=== PATIENT | female | born 1935 | race Caucasian/White ===

== ENCOUNTER 2017-04-07 10:58 | Day surgery (SDC) | payer MEDICARE, OTHER ==
[~2017-04-07 10:58] MED LIST: Midazolam 1 MG/ML 2 ML SDV ONE; Propofol 200 MG/20 ML SDV ONE; fentaNYL 100 MCG/2 ML SDV ONE
[2017-04-07] MEDS ORDERED: Lactated Ringers 1,000 ML IV SCH (11:00)
[2017-04-07] MEDS ORDERED: Sodium Chloride 0.9% 5 ML Syringe FLUSH PRN (11:00)
[2017-04-07] MEDS ORDERED: fentaNYL 100 MCG/2 ML SDV IV ONE (11:53)
[2017-04-07] MEDS ORDERED: Midazolam 1 MG/ML 2 ML SDV IV ONE (11:53)
[2017-04-07] MEDS ORDERED: Propofol 200 MG/20 ML SDV IV ONE (11:53)
[2017-04-07] MEDS ORDERED: EPINEPHrine 1:10,000 1 MG/10 ML Syringe ONE (12:12)
--- NOTE | 2017-04-07 12:30 | PCM.OPNOTE ---
- General Post-Op/Procedure Note Date of Surgery/Procedure: 04/07/17 Operative Procedure(s): Colonoscopy with polypectomy at the ileocecal junction Pre Op Diagnosis: Rectal bleeding screening colonoscopy Post-Op Diagnosis: Polypoid structure noted at the ileocecal junction. This was flat. Multiple biopsies were taken. Anesthesia Technique: MAC Primary Surgeon: Zeeshan Martin Complications: None Free Text/Narrative:: INFORMED CONSENT: Patient is here today for elective colonoscopy. All aspects of this procedure have been discussed with the patient. All possible complications also, including possibility of perforation, infection, pain, bleeding and unknown complications. In the event of perforation patient may need to have abdominal exploration, colon resection, colostomy and even was discussed. Anesthetic complications were handled by anesthesia department. The patient understands fully well. Patient did not have any further questions for me at the end of my interview. The patient wishes for me to proceed. PREOPERATIVE DIAGNOSIS/INDICATIONS: [rectal bleeding and screening] POSTOPERATIVE DIAGNOSIS: [polypoid structure identified at the ileocecal junction. This was flat. Biopsies were taken. Could not completely remove this polyp] INSTRUMENT USED: Olympus videocolonoscope. ASA CLASSIFICATION: [2] ANESTHESIA: Continuous EKG, oximetry and intermittent blood pressure and respiratory monitoring were performed throughout the procedure. IV Versed and Fentanyl were administered. PROCEDURE PERFORMED: Colonoscopy POSITIONS OF PATIENT: Left lateral. RECTUM: Normal. SIGMOID COLON: Normal. DESCENDING COLON: Normal. SPLENIC FLEXURE: Normal. TRANSVERSE COLON: Normal. HEPATIC FLEXURE: Normal. ASCENDING COLON: Normal. CECUM: Normal. ILEOCECAL VALVE: Near the ileocecal valve a flat polyp was identified. We tried to remove it as best as possible using combination of hot biopsy forceps, injection technique with one is to 10,000 epinephrine and a loop electrocautery. It was not possible to completely remove it due to the flat nature. May require further excision by GI and/or other additional attempts at complete removal.. BIOPSY: None. TOLERANCE: Excellent. COMPLICATIONS: None.
[2017-04-07 14:08] VITALS: BP 147/76
== END 2017-04-07 13:45 | disposition home or self-care (01) ==
LOC: KA.SDS 10:58
PROVIDERS: ATTEND Family Medicine
DX: Z12.11 Encounter for screening for malignant neoplasm of colon (principal); Z12.12 Encounter for screening for malignant neoplasm of rectum; D37.4 Neoplasm of uncertain behavior of colon; Z79.899 Other long term (current) drug therapy; I10 Essential (primary) hypertension; M54.5 Low back pain; E78.00 Pure hypercholesterolemia, unspecified; M81.0 Age-related osteoporosis without current pathological fracture
CPT/HCPCS: 45384; J0171; J2250; J2704; J3010; J7120; 00810; 88305

== ENCOUNTER 2018-07-28 14:30 | Observation (INO) | payer MEDICARE, OTHER ==
--- NOTE | 2018-07-28 14:53 | EDM.PDOC ---
ED HPI GENERAL MEDICAL PROBLEM - General Stated Complaint: Tachycardia onset during catarract surgery Time Seen by Provider: 07/28/18 14:42 Source of Information: Reports: Patient History Limitations: Reports: No Limitations - History of Present Illness INITIAL COMMENTS - FREE TEXT/NARRATIVE: Patient presents with report of SVT that started in OR shortly after induction of anesthesia for cataract surgery. She remained in SVT at rate from 140-180 for 20 minutes during the procedure. Anesthesia tried valsalva once without response and brought her to ER as soon as the surgery was over. Soon after that she converted to A Fib with RVR. A few minutes later she spontaneously converted to NSR (with LBBB) as we were preparing to administer IV rate control. Patient has felt completely fine through everything. She denies any chest, neck or arm pain; denies headache, lightheadedness, nausea, diaphoresis. - Related Data Allergies Allergy/AdvReac Type Severity Reaction Status Date / Time warfarin [From Coumadin] Allergy Other Verified 07/28/18 16:26 Home Meds: Home Meds Simvastatin 60 mg PO BEDTIME 10/01/14 [History] Aspirin [Halfprin] 81 mg PO DAILY 04/01/17 [History] Cholecalciferol (Vitamin D3) [Vitamin D3] 1 cap PO DAILY 04/07/17 [History] Latanoprost 1 drop EYEBOTH BEDTIME 04/07/17 [History] Biotin 5 mg PO DAILY 07/24/18 [History] Losartan [Cozaar] 25 mg PO DAILY 07/24/18 [History] Magnesium Oxide [Magnesium] 400 mg PO DAILY 07/24/18 [History] traMADol [Ultram] 50 mg PO Q4H PRN 07/24/18 [History] Past Medical History HEENT History: Reports: Cataract, Glaucoma, Impaired Vision Cardiovascular History: Reports: High Cholesterol, Hypertension Gastrointestinal History: Reports: Colon Polyp Genitourinary History: Reports: None SUPPORT ARCHITECT History: Reports: Musculoskeletal History: Reports: None Oncologic (Cancer) History: Reports: Colon - Infectious Disease History Infectious Disease History: Reports: Chicken Pox, Shingles - Past Surgical History HEENT Surgical History: Reports: Cataract Surgery, Oral Surgery Cardiovascular Surgical History: Reports: None GI Surgical History: Reports: Colonoscopy, Small Bowel Female Surgical History: Reports: Tubal Ligation Musculoskeletal Surgical History: Reports: Knee Replacement Oncologic Surgical History: Reports: Other (See Below) Other Oncologic Surgeries/Procedures: bowel resection 2017 Social & Family History - Family History Family Medical History: Noncontributory - Caffeine Use Caffeine Use: Reports: Coffee ED ROS GENERAL - Review of Systems Review Of Systems: ROS reveals no pertinent complaints other than HPI. ED EXAM, GENERAL - Physical Exam Exam: See Below Exam Limited By: No Limitations General Appearance: Alert, WD/WN, No Apparent Distress Eye Exam: Bilateral Eye: EOMI (right eye patch post-op), Normal Inspection Ears: Normal External Exam, Hearing Grossly Normal Nose: Normal Inspection, No Blood Throat/Mouth: Normal Inspection, Normal Lips, Normal Voice, No Airway Compromise Head: Atraumatic, Normocephalic Neck: Normal Inspection, Full Range of Motion Respiratory/Chest: No Respiratory Distress, Lungs Clear, Normal Breath Sounds, No Accessory Muscle Use Cardiovascular: Tachycardia (initially then spontaneously converted to RRR) GI/Abdominal: Normal Bowel Sounds, Soft, Non-Tender, No Organomegaly Extremities: Normal Inspection, Normal Range of Motion Neurological: Alert, Oriented, Normal Cognition, No Motor/Sensory Deficits Psychiatric: Normal Affect, Normal Mood Skin Exam: Warm, Dry, Intact, Normal Color, No Rash EKG INTERPRETATION EKG Date: 07/28/18 Course - Vital Signs Last Recorded V/S: Last Vital Signs Temp 98.2 F 07/28/18 16:10 Pulse 81 07/28/18 16:10 Resp 18 07/28/18 16:10 BP 146/82 H 07/28/18 16:10 Pulse Ox 92 L 07/28/18 16:10 - Orders/Labs/Meds Orders: Active Orders 24 hr Category Date Time Status Atropine [Atropine 0.1 MG/ML] Med 07/28/18 15:53 Active 0 mg IVPUSH ASDIRECTED PRN EPINEPHrine [EPINEPHrine 1:10,000] Med 07/28/18 15:53 Active 1 mg IVPUSH ASDIRECTED PRN Lidocaine 2% [Xylocaine 2%] Med 07/28/18 15:53 Active 0 mg IVPUSH ASDIRECTED PRN Nitroglycerin [Nitrostat] Med 07/28/18 15:53 Active 0.4 mg SL ASDIRECTED PRN Medication Orders Atropine Sulfate (Atropine 0.1 Mg/Ml) 0 mg IVPUSH ASDIRECTED PRN PRN Reason: Heart Epinephrine HCl (Epinephrine 1:10,000) 1 mg IVPUSH ASDIRECTED PRN PRN Reason: Heart Lidocaine HCl (Xylocaine 2%) 0 mg IVPUSH ASDIRECTED PRN PRN Reason: Heart Nitroglycerin (Nitrostat) 0.4 mg SL ASDIRECTED PRN PRN Reason: Heart Labs: Laboratory Tests 07/28/18 07/28/18 Range/Units 15:10 15:10 WBC 7.69 (5.00-10.00) 10^3/uL RBC 4.80 (3.80-5.50) 10^6/uL Hgb 14.2 (12.0-16.0) g/dL Hct 44.6 (37.0-47.0) % MCV 92.9 H D (82.0-92.0) fL MCH 29.6 (27.0-31.0) pg MCHC 31.8 L (32.0-36.0) g/dL RDW 14.1 (11.5-14.5) % Plt Count 244 (150-400) 10^3/uL MPV 9.5 (7.4-10.4) fL Immature Gran % (Auto) 0.1 (0.0-5.0) % Neut % (Auto) 65.1 (50.0-70.0) % Lymph % (Auto) 26.0 (20.0-40.0) % Taylor % (Auto) 6.5 (2.0-8.0) % Eos % (Auto) 2.0 (1.0-3.0) % Baso % (Auto) 0.3 (0.0-1.0) % Immature Gran # (Auto) 0.01 (0.00-0.50) 10^3/uL Neut # (Auto) 5.01 (2.50-7.00) 10^3/uL Lymph # (Auto) 2.00 (1.00-4.00) 10^3/uL Taylor # (Auto) 0.50 (0.10-0.80) 10^3/uL Eos # (Auto) 0.15 (0.10-0.30) 10^3/uL Baso # (Auto) 0.02 (0.00-0.10) 10^3/uL Sodium 142 (136-145) mmol/L Potassium 4.1 (3.3-5.3) mmol/L Chloride 106 (98-115) mmol/L Carbon Dioxide 26.9 (21.0-32.0) mmol/L Anion Gap 13.2 (5-15) mmol/L BUN 17 (6-25) mg/dL Creatinine 0.65 (0.51-1.17) mg/dL Est Cr Clr Drug Dosing TNP Estimated GFR (MDRD) > 60 mL/min Glucose 94 mg/dL Calcium 9.2 (8.7-10.3) mg/dL Troponin I 0.08 H* (0.00-0.070) ng/mL Meds: Medications Generic Name Dose Route Start Last Admin Trade Name Freq PRN Reason Stop Dose Admin Atropine Sulfate 0 mg 07/28/18 15:53 Atropine 0.1 Mg/Ml IVPUSH ASDIRECTED PRN Heart Epinephrine HCl 1 mg 07/28/18 15:53 Epinephrine 1:10,000 IVPUSH ASDIRECTED PRN Heart Lidocaine HCl 0 mg 07/28/18 15:53 Xylocaine 2% IVPUSH ASDIRECTED PRN Heart Nitroglycerin 0.4 mg 07/28/18 15:53 Nitrostat SL ASDIRECTED PRN Heart Discontinued Medications Generic Name Dose Route Start Last Admin Trade Name Freq PRN Reason Stop Dose Admin Aspirin 325 mg 07/28/18 15:25 07/28/18 15:55 Ecotrin PO 07/28/18 15:26 325 mg ONETIME ONE Administration - Re-Assessments/Exams Free Text/Narrative Re-Assessment/Exam: 07/28/18 15:31 Initial EKG showed A Fib with RVR that spontaneously converted to NSR with LBBB which was caught on second EKG. Patient has been completely asymptomatic through everything and is feeling well. I faxed both EKGs to [facility] since she was just there for pre-op clearance. Dr. Silva (?sp) reviewed the EKGs and assured me that the ST changes were not indicative of STEMI but just related to her LBBB. Discussed case with Dr. Vieira to consider observation which he agreed and accepted. Discussed all of this with the patient and she was stable at ER discharge. 07/28/18 16:39 Troponin is 0.08 which I feel is likely due to cardiac strain during the 30-40 minutes of A Fib with RVR. Informed Dr. Vieira as she is in observation now and if necessary a second can be checked per him. Departure - Departure Time of Disposition: 15:23 Disposition: Refer to Observation Condition: Good Clinical Impression: Atrial fibrillation with RVR, Postoperative care for cataract of right eye Referrals: Lorne Nova, SAL[facility] GRINDER [Primary Care Provider] - - My Orders Last 24 Hours: My Active Orders 07/28/18 15:53 Atropine [Atropine 0.1 MG/ML] 0 mg IVPUSH ASDIRECTED PRN EPINEPHrine [EPINEPHrine 1:10,000] 1 mg IVPUSH ASDIRECTED PRN Lidocaine 2% [Xylocaine 2%] 0 mg IVPUSH ASDIRECTED PRN Nitroglycerin [Nitrostat] 0.4 mg SL ASDIRECTED PRN - Assessment/Plan Last 24 Hours: My Active Orders 07/28/18 15:53 Atropine [Atropine 0.1 MG/ML] 0 mg IVPUSH ASDIRECTED PRN EPINEPHrine [EPINEPHrine 1:10,000] 1 mg IVPUSH ASDIRECTED PRN Lidocaine 2% [Xylocaine 2%] 0 mg IVPUSH ASDIRECTED PRN Nitroglycerin [Nitrostat] 0.4 mg SL ASDIRECTED PRN
[2018-07-28] MEDS ORDERED: Aspirin 325 MG Tab.EC PO ONE (15:25)
[2018-07-28 15:48] LABS: ANION GAP 13.2 mmol/L (5-15); CHLORIDE,CL 106 mmol/L (98-115); SODIUM,NA 142 mmol/L (136-145)
[2018-07-28] MEDS ORDERED: Nitroglycerin 0.4 MG Tab.SL SL PRN (15:53)
[2018-07-28] MEDS ORDERED: Atropine 0.1 MG/ML 10 ML Syringe IVPUSH PRN (15:53)
[2018-07-28] MEDS ORDERED: EPINEPHrine 1:10,000 1 MG/10 ML Syringe IVPUSH PRN (15:53)
[2018-07-28] MEDS ORDERED: Lidocaine 2% 100 MG/5 ML Syringe IVPUSH PRN (15:53)
[2018-07-28] MEDS ORDERED: traMADol 50 MG Tab PO PRN (16:45)
[2018-07-28] MEDS ORDERED: GATIFLOXACIN EYERT SCH (17:00)
[2018-07-28] MEDS ORDERED: Non-Formulary Medication 1 Each (Prednisolone Acetate/Pf [Prednisolone Acet 1% Eye Drop] 1 EYERT SCH (17:00)
[2018-07-28] MEDS ORDERED: Enoxaparin 40 MG/0.4 ML Syringe SUBCUT ONE ×2 (19:45→19:53)
[2018-07-28] MEDS: Simvastatin 20 MG Tab PO SCH (20:11)
[2018-07-28] MEDS: Latanoprost 0.005% Ophth Soln 2.5 ML Bottle EYEBOTH SCH (20:14)
--- NOTE | 2018-07-29 08:50 | PCM.HP ---
H&P History of Present Illness - General Date of Service: 07/29/18 Admit Problem/Dx: Admission Diagnosis/Problem Admission Diagnosis/Problem Atrial fibrillation with rapid ventricular response Source of Information: Patient, Old Records - History of Present Illness Initial Comments - Free Text/Narative: 82 y/o female was admitted into observation yesterday due to atrial fibrillation with RVR. This today patient was undergoing cataract surgery and shortly after induction of anesthesia she went into SVT heart rate 140s to 180s for approximately 20 minutes duration. Although patient was asymptomatic Patient was completely asymptomatic a trial of Valsalva maneuvers was unsuccessful. She was subsequently transferred to the ED shortly thereafter she went into atrial fibrillation with RVR few minutes later spontaneously converted into normal sinus rhythm. Patient never had symptoms such as chest pains lightheadedness diaphoresis. She was admitted into observation with telemetry status. - Related Data Allergies/Adverse Reactions: Allergies Allergy/AdvReac Type Severity Reaction Status Date / Time warfarin [From Coumadin] Allergy Other Verified 07/28/18 16:26 Home Medications: Home Meds Simvastatin 60 mg PO BEDTIME 10/01/14 [History] Cholecalciferol (Vitamin D3) [Vitamin D3] 2,000 unit PO DAILY 04/07/17 [History] Latanoprost 1 drop EYEBOTH BEDTIME 04/07/17 [History] Biotin 5 mg PO DAILY 07/24/18 [History] Losartan [Cozaar] 25 mg PO DAILY 07/24/18 [History] Magnesium Oxide [Magnesium] 400 mg PO DAILY 07/24/18 [History] traMADol [Ultram] 50 mg PO Q4H PRN 07/24/18 [History] Gatifloxacin [Zymaxid 0.5% Ophth Soln] 1 drop EYERT QID 07/28/18 [History] Prednisolone Acetate/Pf [Prednisolone Acet 1% Eye Drop] 1 drop EYERT QID [History] Apixaban [Eliquis] 2.5 mg PO BID #60 tablet 07/30/18 [Rx] Metoprolol Tartrate [Lopressor] 50 mg PO BID #60 tablet 07/30/18 [Rx] Past Medical History HEENT History: Reports: Cataract, Glaucoma, Impaired Vision Other HEENT History: right cataract surgery today Cardiovascular History: Reports: High Cholesterol, Hypertension Other Cardiovascular History: Afib with RVR that converted back to a normal sinus without receiving medications Gastrointestinal History: Reports: Colon Polyp Genitourinary History: Reports: None 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: Musculoskeletal History: Reports: None Oncologic (Cancer) History: Reports: Colon - Infectious Disease History Infectious Disease History: Reports: Chicken Pox, Shingles - Past Surgical History HEENT Surgical History: Reports: Cataract Surgery, Oral Surgery Cardiovascular Surgical History: Reports: None GI Surgical History: Reports: Colonoscopy, Small Bowel Female Surgical History: Reports: Tubal Ligation Musculoskeletal Surgical History: Reports: Knee Replacement Oncologic Surgical History: Reports: Other (See Below) Other Oncologic Surgeries/Procedures: bowel resection 2016 Social & Family History - Family History Family Medical History: Noncontributory Cardiac: Reports: None Respiratory: Reports: None GI: Reports: None : Reports: None OBGYN: Reports: None Musculoskeletal: Reports: None Neurological: Reports: None Psychiatric: Reports: None - Tobacco Use Smoking Status *Q: Former Smoker Used Tobacco, but Quit: Yes Month/Year Tobacco Last Used: 1999 - Caffeine Use Caffeine Use: Reports: Coffee - Recreational Drug Use Recreational Drug Use: No H&P Review of Systems - Review of Systems: Review Of Systems: See Below General: Reports: No Symptoms HEENT: Reports: No Symptoms Pulmonary: Reports: No Symptoms Cardiovascular: Reports: No Symptoms Gastrointestinal: Reports: No Symptoms Genitourinary: Reports: No Symptoms Musculoskeletal: Reports: Back Pain Skin: Reports: No Symptoms Psychiatric: Reports: No Symptoms Neurological: Reports: No Symptoms Hematologic/Lymphatic: Reports: No Symptoms Immunologic: Reports: No Symptoms Exam - Exam Exam: See Below - Vital Signs Vital Signs: Last Vital Signs Temp 98.5 F 07/29/18 06:55 Pulse 70 07/29/18 06:55 Resp 20 07/29/18 06:55 BP 144/80 H 07/29/18 06:55 Pulse Ox 94 L 07/29/18 06:55 Weight: 112 lb 11.2 oz - Exam General: Alert, Oriented, 4 Neck: Supple, Trachea Midline, 2 Lungs: Clear to Auscultation, Normal Respiratory Effort Cardiovascular: Regular Rate, Regular Rhythm GI/Abdominal Exam: Normal Bowel Sounds, Soft, Non-Tender, No Distention (Female) Exam: Deferred Rectal (Female) Exam: Deferred Back Exam: No: CVA Tenderness (L), CVA Tenderness (R) Extremities: No Pedal Edema Skin: Warm, Dry, Intact Neurological: Cranial Nerves Intact, Reflexes Equal Bilateral Neuro Extensive - Mental Status: Alert, Oriented x3, Normal Mood/Affect, Normal Cognition Neuro Extensive - Motor, Sensory, Reflexes: CN II-XII Intact, Normal Gait, Normal Reflexes Psychiatric: Alert, Normal Affect, Normal Mood - Patient Data Lab Results Last 24 hrs: Laboratory Results - last 24 hr 07/28/18 07/28/18 07/28/18 Range/Units 15:10 15:10 18:50 WBC 7.69 (5.00-10.00) 10^3/uL RBC 4.80 (3.80-5.50) 10^6/uL Hgb 14.2 (12.0-16.0) g/dL Hct 44.6 (37.0-47.0) % MCV 92.9 H D (82.0-92.0) fL MCH 29.6 (27.0-31.0) pg MCHC 31.8 L (32.0-36.0) g/dL RDW 14.1 (11.5-14.5) % Plt Count 244 (150-400) 10^3/uL MPV 9.5 (7.4-10.4) fL Immature Gran % (Auto) 0.1 (0.0-5.0) % Neut % (Auto) 65.1 (50.0-70.0) % Lymph % (Auto) 26.0 (20.0-40.0) % [place] % (Auto) 6.5 (2.0-8.0) % Eos % (Auto) 2.0 (1.0-3.0) % Baso % (Auto) 0.3 (0.0-1.0) % Immature Gran # (Auto) 0.01 (0.00-0.50) 10^3/uL Neut # (Auto) 5.01 (2.50-7.00) 10^3/uL Lymph # (Auto) 2.00 (1.00-4.00) 10^3/uL [place] # (Auto) 0.50 (0.10-0.80) 10^3/uL Eos # (Auto) 0.15 (0.10-0.30) 10^3/uL Baso # (Auto) 0.02 (0.00-0.10) 10^3/uL Sodium 142 (136-145) mmol/L Potassium 4.1 (3.3-5.3) mmol/L Chloride 106 (98-115) mmol/L Carbon Dioxide 26.9 (21.0-32.0) mmol/L Anion Gap 13.2 (5-15) mmol/L BUN 17 (6-25) mg/dL Creatinine 0.65 (0.51-1.17) mg/dL Est Cr Clr Drug Dosing TNP Estimated GFR (MDRD) > 60 mL/min Glucose 94 mg/dL Calcium 9.2 (8.7-10.3) mg/dL Troponin I 0.08 H* 0.11 H* (0.00-0.070) ng/mL 07/29/18 Range/Units 07:05 WBC (5.00-10.00) 10^3/uL RBC (3.80-5.50) 10^6/uL Hgb (12.0-16.0) g/dL Hct (37.0-47.0) % MCV (82.0-92.0) fL MCH (27.0-31.0) pg MCHC (32.0-36.0) g/dL RDW (11.5-14.5) % Plt Count (150-400) 10^3/uL MPV (7.4-10.4) fL Immature Gran % (Auto) (0.0-5.0) % Neut % (Auto) (50.0-70.0) % Lymph % (Auto) (20.0-40.0) % [place] % (Auto) (2.0-8.0) % Eos % (Auto) (1.0-3.0) % Baso % (Auto) (0.0-1.0) % Immature Gran # (Auto) (0.00-0.50) 10^3/uL Neut # (Auto) (2.50-7.00) 10^3/uL Lymph # (Auto) (1.00-4.00) 10^3/uL [place] # (Auto) (0.10-0.80) 10^3/uL Eos # (Auto) (0.10-0.30) 10^3/uL Baso # (Auto) (0.00-0.10) 10^3/uL Sodium (136-145) mmol/L Potassium (3.3-5.3) mmol/L Chloride (98-115) mmol/L Carbon Dioxide (21.0-32.0) mmol/L Anion Gap (5-15) mmol/L BUN (6-25) mg/dL Creatinine (0.51-1.17) mg/dL Est Cr Clr Drug Dosing Estimated GFR (MDRD) mL/min Glucose mg/dL Calcium (8.7-10.3) mg/dL Troponin I 0.12 H* (0.00-0.070) ng/mL Result Diagrams: 07/28/18 15:10 07/28/18 15:10 *Q Meaningful Use (ADM) - VTE Risk Assess *Q Other Thrombophilia Type: Cataract surgery today Problem List Initiated/Reviewed/Updated: Yes Orders Last 24hrs: Active Orders 24 hr Category Date Time Status Patient Status [ADT] Routine ADT 07/28/18 16:00 Ordered Cardiac Monitoring [RC] 0300,0700,1100,1500,1900,2300 Care 07/28/18 17:01 Active Up With Assistance [RC] ASDIRECTED Care 07/28/18 16:58 Active Vital Signs [RC] 0300,0700,1100,1500,1900,2300 Care 07/28/18 16:58 Active Heart Healthy Diet [DIET] Diet 07/28/18 Dinner Active Aspirin [Halfprin] Med 07/29/18 09:00 Active 81 mg PO DAILY Atropine [Atropine 0.1 MG/ML] Med 07/28/18 15:53 Active 0 mg IVPUSH ASDIRECTED PRN Biotin [Biotin] Med 07/29/18 09:00 Pending 5 mg PO DAILY Cholecalciferol (Vitamin D3) [Vitamin D3] Med 07/29/18 09:00 Active 1,000 units PO DAILY EPINEPHrine [EPINEPHrine 1:10,000] Med 07/28/18 15:53 Active 1 mg IVPUSH ASDIRECTED PRN Latanoprost [Xalatan 0.005% Ophth Soln] Med 07/28/18 21:00 Active 0 ml EYEBOTH BEDTIME Lidocaine 2% [Xylocaine 2%] Med 07/28/18 15:53 Active 0 mg IVPUSH ASDIRECTED PRN Losartan [Cozaar] Med 07/29/18 09:00 Active 25 mg PO DAILY Magnesium Oxide Med 07/29/18 09:00 Active 500 mg PO DAILY Nitroglycerin [Nitrostat] Med 07/28/18 15:53 Active 0.4 mg SL ASDIRECTED PRN Patient's Own Medication [Ptom] Med 07/29/18 09:00 Active 1 each EYERT QID Patient's Own Medication [Ptom] Med 07/29/18 09:00 Active 1 each EYERT QID Simvastatin [Zocor] Med 07/28/18 21:00 Active 60 mg PO BEDTIME traMADol [Ultram] Med 07/28/18 16:45 Active 50 mg PO Q4H PRN Resuscitation Status Routine Resus Stat 07/28/18 16:58 Ordered Medication Orders Aspirin (Halfprin) 81 mg PO DAILY [facility] Atropine Sulfate (Atropine 0.1 Mg/Ml) 0 mg IVPUSH ASDIRECTED PRN PRN Reason: Heart Cholecalciferol (Vitamin D3) 1,000 units PO DAILY [facility] Epinephrine HCl (Epinephrine 1:10,000) 1 mg IVPUSH ASDIRECTED PRN PRN Reason: Heart Latanoprost (Xalatan 0.005% Ophth Soln) 0 ml EYEBOTH BEDTIME [facility] Last Admin: 07/28/18 20:14 Dose: Not Given Lidocaine HCl (Xylocaine 2%) 0 mg IVPUSH ASDIRECTED PRN PRN Reason: Heart Losartan Potassium (Cozaar) 25 mg PO DAILY [facility] Magnesium Oxide (Magnesium Oxide) 500 mg PO DAILY [facility] Nitroglycerin (Nitrostat) 0.4 mg SL ASDIRECTED PRN PRN Reason: Heart Non-Formulary Medication (Biotin [Biotin]) 5 mg PO DAILY [facility] Ptom Prednisolone 1% Ophth Susp 1 each EYERT QID ROBB Ptom Gatifloxacin 0.5% Ophth Soln 1 each EYERT QID [facility] Simvastatin (Zocor) 60 mg PO BEDTIME [facility] Last Admin: 07/28/18 20:11 Dose: 60 mg Tramadol HCl (Ultram) 50 mg PO Q4H PRN PRN Reason: Pain Last Admin: 07/29/18 06:30 Dose: 50 mg Assessment/Plan Comment:: History of present illness 82 y/o female was admitted into observation yesterday due to atrial fibrillation with RVR. This today patient was undergoing cataract surgery and shortly after induction of anesthesia she went into SVT heart rate 140s to 180s for approximately 20 minutes duration. Although patient was asymptomatic Patient was completely asymptomatic a trial of Valsalva maneuvers was unsuccessful. She was subsequently transferred to the ED shortly thereafter she went into atrial fibrillation with RVR few minutes later spontaneously converted into normal sinus rhythm. Patient never had symptoms such as chest pains lightheadedness diaphoresis. She was admitted into observation with telemetry status. Pertinent ED workup/findings EKG, witnessed atrial fibrillation RVR rate 155 Initial troponin 0.08 BP 137/91 Primary hospital problems Paroxysmal Afib, [id number] high 7, NSR, unknown burden, ECHO 06/09, EF 45% global hypokinesis LV, grade 2 LV diastolic dysfunction, mild LV thickness ND, likely type 2 hemodynamic, NORY risk 4-immediate ASA was held 5 days pre- cataract surgery. Aggressive medical therapy for now, New LBBB, limitted flow disease pretest probability for CAD, [place] heart score unreliable as she has no anginal or equivalent symptoms. Warfarin is listed as unknown allergy on chart, obtain records from [facility]. Likely will need to start some sort anticoagulation hopefully DOAC, in the meantime start BB. Will consult with cardiology for outpatient referral and likely Zio Patch to assess atrial fib burden. Long discussion regarding anticoagulation factor Xa inhibitor and all the risks versus benefits explained to the patient including risks of serious bleeding. Patient consents to start on Eliquis. Chronic problems LV Diastolic dysfuntion HTN, stable, ARB HLD, ASCVD, statin Hx cerebral infarction Osteoporosis, vitamin D, calcium, Anxiety, stable, possibly mimicking chest palpitations Status post cataract surgery, stable, follow-up appointment [address] Jack
[2018-07-29] MEDS: PREDNISOLONE 1% EYERT SCH ×4 (08:59→20:14)
[2018-07-29] MEDS: Magnesium Oxide 500 MG Tab PO SCH (08:59)
[2018-07-29] MEDS: Aspirin 81 MG Tab.EC PO SCH (08:59)
[2018-07-29] MEDS: Cholecalciferol (Vitamin D3) 1,000 Unit Tab PO SCH (08:59)
[2018-07-29] MEDS: Losartan 25 MG Tab PO SCH (08:59)
[2018-07-29] MEDS ORDERED: Non-Formulary Medication 1 Each (Biotin [Biotin] 5 MG) PO SCH (09:00)
[2018-07-29] MEDS: GATIFLOXACIN 0.5% EYERT SCH ×4 (09:23→20:19)
[2018-07-29] MEDS: Metoprolol Tartrate 50 MG Tab PO SCH ×2 (10:50→20:18)
[2018-07-29] MEDS ORDERED: Sodium Chloride 0.9% 5 ML Syringe FLUSH PRN (20:00)
[2018-07-29] MEDS: Simvastatin 20 MG Tab PO SCH (20:18)
[2018-07-29] MEDS: Latanoprost 0.005% Ophth Soln 2.5 ML Bottle EYEBOTH SCH (20:19)
[2018-07-30 06:48] VITALS: BP 143/82
[2018-07-30] MEDS: Aspirin 81 MG Tab.EC PO SCH (08:36)
[2018-07-30] MEDS: Losartan 25 MG Tab PO SCH (08:36)
[2018-07-30] MEDS: Metoprolol Tartrate 50 MG Tab PO SCH (08:36)
[2018-07-30] MEDS: Cholecalciferol (Vitamin D3) 1,000 Unit Tab PO SCH (08:37)
[2018-07-30] MEDS: Magnesium Oxide 500 MG Tab PO SCH (08:37)
[2018-07-30] MEDS: GATIFLOXACIN 0.5% EYERT SCH (08:40)
[2018-07-30] MEDS: PREDNISOLONE 1% EYERT SCH (08:41)
[2018-07-30] MEDS ORDERED: Apixaban 5 MG Tab PO SCH (09:45)
== END 2018-07-30 12:15 | disposition home or self-care (01) ==
LOC: KA.ED 14:30 → KA.MS 15:26 → UNDODISOB 07-30 12:15
PROVIDERS: ADMIT Physician Assistant Surgical; ATTEND Family Medicine
DX: I48.0 Paroxysmal atrial fibrillation (principal); I11.9 Hypertensive heart disease without heart failure; I44.7 Left bundle-branch block, unspecified; I25.2 Old myocardial infarction; F41.9 Anxiety disorder, unspecified; E78.5 Hyperlipidemia, unspecified; Z87.891 Personal history of nicotine dependence; Z79.01 Long term (current) use of anticoagulants; Z79.899 Other long term (current) drug therapy; Z88.8 Allergy status to other drugs, medicaments and biological substances
CPT/HCPCS: 36415; 80048; 84484; 85025; 96372; 99284; 99285; A9270-GY; G0378; J1650

== ENCOUNTER 2019-01-26 07:35 | Day surgery (SDC) | payer MEDICARE, OTHER ==
[2019-01-26] MEDS ORDERED: fentaNYL 100 MCG/2 ML SDV IV ONE (07:36)
[2019-01-26] MEDS ORDERED: Midazolam 1 MG/ML 2 ML SDV IV ONE (07:36)
[2019-01-26] MEDS ORDERED: Gatifloxacin 0.5% Ophth Soln 2.5 ML Bot EYELF SCH (07:40)
[2019-01-26] MEDS ORDERED: Sodium Chloride 0.9% 10 ML Syringe FLUSH PRN (07:40)
[2019-01-26] MEDS ORDERED: Lactated Ringers 1,000 ML IV SCH (07:40)
[2019-01-26] MEDS ORDERED: Tobramycin 0.3% Ophth Drops 5 ML Bottle EYELF ONE (07:51)
[2019-01-26] MEDS: Cyclopentolate 1% Opth Soln 2 ML Bottle EYELF SCH ×3 (08:04→08:29)
[2019-01-26] MEDS ORDERED: fentaNYL 100 MCG/2 ML SDV ONE (08:04)
[2019-01-26] MEDS ORDERED: Midazolam 1 MG/ML 2 ML SDV ONE (08:04)
[2019-01-26] MEDS: Phenylephrine 10% Ophth Soln 5 ML Bot EYELF SCH ×3 (08:09→08:35)
[2019-01-26] MEDS ORDERED: Sodium Chloride 0.9% 250 ML IV SCH (08:30)
[2019-01-26] MEDS ORDERED: Balanced Salt Solution Plus Ophth Irrig 500 ML Bottle IOCULAR ONE (09:31)
[2019-01-26] MEDS ORDERED: Balanced Salt Solution Ophth Irrig 15 ML Bottle EYELF ONE (09:31)
[2019-01-26] MEDS ORDERED: Water For Irrigation,Sterile 1,500 ML Container IRR ONE (09:31)
[2019-01-26] MEDS ORDERED: EPINEPHrine 1 MG/ML SDV ONE (09:32)
[2019-01-26] MEDS ORDERED: Carbachol 0.01% Intraocular 1.5 ML Vial EYELF ONE (09:32)
[2019-01-26] MEDS ORDERED: Dexamethasone/Neomycin/Polymyxin B Ophth Oint 3.5 GM Tube EYELF ONE (09:33)
[2019-01-26] MEDS ORDERED: Tetracaine HCl/PF 0.5% 4 ML Bottle EYEBOTH ONE (09:34)
[2019-01-26] MEDS ORDERED: Lidocaine 1% 10 ML MDV INJECT ONE (09:34)
[2019-01-26] MEDS ORDERED: Hyaluronate Sodium 1% 0.85 ML Syringe IOCULAR ONE ×2 (09:34)
[2019-01-26 10:07] VITALS: BP 139/63
--- NOTE | 2019-01-26 12:48 | OR ---
DATE OF SURGERY: 01/26/2019 SURGEON: Peña Long MD PREOPERATIVE DIAGNOSIS: Cataract, left eye. POSTOPERATIVE DIAGNOSIS: Cataract, left eye. OPERATION: Phacoemulsification with posterior chamber lens insertion, left eye. HISTORY: The patient presents at this time with an increasing amount of difficulty seeing print on TV and difficulty seeing to read; also oncoming lights bother her. The left eye has a vision of 20/60. The left lens has a 3+ nuclear sclerosis, 1+ cortical change, and one to 2+ posterior subcapsular change. This eye has a combined cataract and a cataract of aging. OPERATIVE PROCEDURE: The patient was taken to the operating room where appropriate anesthesia, sedation and monitoring were provided. The eye and the eyelids were then prepped and draped in the usual sterile manner. A lid speculum was placed. A micro sharp blade was used to enter the anterior chamber inferotemporally and through this site, xylocaine and then Healon were irrigated in the eye. Then using a 2.85 mm blade, an incision was made at the limbus temporally. Healon was irrigated in the eye and then using a cystotome, the anterior capsulorrhexis was created. The lens nucleus was hydrodissected using a 27-gauge cannula and balanced salt solution. The phacoemulsification unit was introduced through the temporal site and the Bhupendra spatula through the inferior temporal site. In so doing, the anterior aspect of the lens nucleus was phacoemulsified and the central core of the lens nucleus was phacoemulsified. Once this was being done, it was noted that the pupil was becoming smaller and therefore Healon was irrigated into the eye and a Malyugin ring of 6.25 mm was placed. Thereafter, the phacoemulsification was accomplished without difficulty. The cortical fragments of the lens were removed using the irrigation aspiration unit. The posterior capsule was polished. Healon was irrigated into the eye. The posterior chamber lens was inserted and was rotated into position inside the capsular bag. Malyugin ring was removed. The Healon was irrigated out of the eye. Miostat was irrigated into the eye and the pupil rounded nicely. A single interrupted 10-0 nylon suture was placed through the temporal corneal incision site. Balanced salt solution was irrigated into the eye. The wound was tested and was found to be appropriately tight. Maxitrol ointment was placed in the patient's eye. The eyelids were closed and an eye patch and a Santos shield were placed. The patient left the operating room in good condition. /[id number]/MODL
== END 2019-01-26 10:24 | disposition home or self-care (01) ==
LOC: KA.SDS 07:35
PROVIDERS: ATTEND Ophthalmology
DX: H25.812 Combined forms of age-related cataract, left eye (principal); Z96.1 Presence of intraocular lens; I10 Essential (primary) hypertension; I48.0 Paroxysmal atrial fibrillation; I48.91 Unspecified atrial fibrillation; E78.5 Hyperlipidemia, unspecified; R60.0 Localized edema; Z79.01 Long term (current) use of anticoagulants; Z88.8 Allergy status to other drugs, medicaments and biological substances
CPT/HCPCS: 00142; 36410; A9270-GY; C1780; J0171; J2001; J2250; J3010; J7050

== ENCOUNTER 2019-02-02 18:40 | Inpatient (IN) | payer MEDICARE, OTHER ==
[2019-02-02] MEDS ORDERED: Ondansetron 4 MG/2 ML SDV IV PRN (19:57)
[2019-02-02] MEDS ORDERED: Melatonin 3 MG Tab PO PRN (20:11)
--- NOTE | 2019-02-02 20:15 | PCM.HP ---
H&P History of Present Illness - General Date of Service: 02/02/19 Admit Problem/Dx: Admission Diagnosis/Problem Admission Diagnosis/Problem Diverticulitis Source of Information: Patient History Limitations: Reports: No Limitations Right Lower Abdomen Pain Score (Numeric/FACES): 3 - Related Data Allergies/Adverse Reactions: Allergies Allergy/AdvReac Type Severity Reaction Status Date / Time warfarin [From Coumadin] Allergy Other Verified 02/02/19 18:59 Home Medications: Home Meds Cholecalciferol (Vitamin D3) [Vitamin D3] 2,000 unit PO DAILY 04/07/17 [History] Latanoprost 1 drop EYEBOTH BEDTIME 04/07/17 [History] Biotin 5 mg PO DAILY 07/24/18 [History] Magnesium Oxide [Magnesium] 400 mg PO DAILY PRN 07/24/18 [History] traMADol [Ultram] 50 mg PO Q8HR PRN 07/24/18 [History] Prednisolone Acetate/Pf [Prednisolone Acet 1% Eye Drop] 1 drop EYELF QID [History] Apixaban [Eliquis] 2.5 mg PO BID #60 tablet 07/30/18 [Rx] Furosemide [Lasix] 40 mg PO DAILY 01/25/19 [History] Losartan [Cozaar] 25 mg PO DAILY 01/25/19 [History] Metoprolol Succinate [Toprol XL] 25 mg PO DAILY 01/25/19 [History] Simvastatin [Zocor] 60 mg PO DAILY 01/25/19 [History] Furosemide [Lasix] 40 mg PO DAILY PRN 02/02/19 [History] Past Medical History HEENT History: Reports: Cataract, Glaucoma, Impaired Vision Other HEENT History: right cataract surgery last week. Cardiovascular History: Reports: Arrhythmia, High Cholesterol, Hypertension Other Cardiovascular History: Afib with RVR that converted back to a normal sinus without receiving medications post-op cataract Respiratory History: Reports: Other (See Below) Other Respiratory History: Flash Pulmonary edema Gastrointestinal History: Reports: Colon Polyp Genitourinary History: Reports: None TAPPER HAND History: Reports: Musculoskeletal History: Reports: Back Pain, Chronic Other Musculoskeletal History: Back pain "comes and goes." Pt states she uses ultram as needed for this pain. 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 Psychiatric History: Reports: None Hematologic History: Reports: None Immunologic History: Reports: None Oncologic (Cancer) History: Reports: Colon Dermatologic History: Reports: None - Infectious Disease History Infectious Disease History: Reports: Chicken Pox, Measles, Mumps - Past Surgical History Head Surgeries/Procedures: Reports: None HEENT Surgical History: Reports: Cataract Surgery, Oral Surgery Cardiovascular Surgical History: Reports: None GI Surgical History: Reports: Colonoscopy, Small Bowel Female Surgical History: Reports: Tubal Ligation Musculoskeletal Surgical History: Reports: Knee Replacement Oncologic Surgical History: Reports: Other (See Below) Other Oncologic Surgeries/Procedures: bowel resection 2016 Social & Family History - Family History Family Medical History: Noncontributory Cardiac: Reports: None Respiratory: Reports: None GI: Reports: None : Reports: None OBGYN: Reports: None Musculoskeletal: Reports: None Neurological: Reports: None Psychiatric: Reports: None Endocrine/Metabolic: Reports: None Hematologic: Reports: None Immunologic: Reports: None Oncologic: Reports: None - Tobacco Use Smoking Status *Q: Former Smoker Years of Tobacco use: 40 Packs/Tins Daily: 1 Used Tobacco, but Quit: Yes Month/Year Tobacco Last Used: 1997 Second Hand Smoke Exposure: No - Caffeine Use Caffeine Use: Reports: None - Recreational Drug Use Recreational Drug Use: No H&P Review of Systems - Review of Systems: Review Of Systems: See Below General: Denies: No Symptoms, Fever, Chills, Malaise, Weakness, Fatigue, Night Sweats, Diaphoresis, Decreased Appetite, Weight Loss HEENT: Reports: No Symptoms Pulmonary: Reports: No Symptoms Cardiovascular: Reports: Dyspnea on Exertion. Denies: Blood Pressure Problem Gastrointestinal: Reports: Abdominal Pain. Denies: Constipation, Decreased Appetite, Difficulty Swallowing, Distension, Nausea, Vomiting Genitourinary: Reports: No Symptoms Musculoskeletal: Reports: No Symptoms Skin: Reports: No Symptoms Psychiatric: Reports: No Symptoms Neurological: Reports: No Symptoms Hematologic/Lymphatic: Reports: Easy Bleeding Immunologic: Reports: No Symptoms Exam - Exam Exam: See Below - Vital Signs Vital Signs: Last Vital Signs Temp 98.7 F 02/02/19 18:49 Pulse 79 02/02/19 18:49 Resp 22 H 02/02/19 18:49 BP 138/76 02/02/19 18:49 Pulse Ox 93 L 02/02/19 18:49 Weight: 110 lb 1.6 oz - Exam Quality Assessment: No: Supplemental Oxygen General: Alert, Oriented, Cooperative. No: Mild Distress HEENT: Conjunctiva Clear, Mucosa Moist & [place] Neck: Supple Lungs: Clear to Auscultation, Normal Respiratory Effort. No: Rhonchi Cardiovascular: Regular Rate, Regular Rhythm, Normal S1, Normal S2 GI/Abdominal Exam: Soft, No Distention, Tender (tender to RLQ) (Female) Exam: Deferred Rectal (Female) Exam: Deferred Back Exam: No: CVA Tenderness (L), CVA Tenderness (R) Extremities: No Pedal Edema Peripheral Pulses: 2+: Radial (L), Radial (R) Skin: Warm, Dry, Intact Neurological: Cranial Nerves Intact, Reflexes Equal Bilateral Neuro Extensive - Mental Status: Alert, Oriented x3, Normal Mood/Affect, Normal Cognition Neuro Extensive - Motor, Sensory, Reflexes: CN II-XII Intact, Normal Gait, Normal Reflexes Psychiatric: Alert, Normal Affect, Normal Mood. No: Agitated - Patient Data Result Diagrams: 02/03/19 07:15 Problem List Initiated/Reviewed/Updated: Yes Orders Last 24hrs: Active Orders 24 hr Category Date Time Status Admission Status [Patient Status] [ADT] Routine ADT 02/02/19 18:40 Ordered May Shower [RC] ASDIRECTED Care 02/02/19 19:57 Active Notify Provider Vital Signs [RC] ASDIRECTED Care 02/02/19 19:57 Active Oxygen Therapy [RC] PRN Care 02/02/19 19:57 Active Up to Chair [RC] ASDIRECTED Care 02/02/19 19:57 Active VTE/DVT Education [RC] PER UNIT ROUTINE Care 02/02/19 19:57 Active Vital Signs [RC] Q4H Care 02/02/19 19:57 Active Low Residue [Low Fiber Diet] [DIET] Diet 02/03/19 Breakfast Active CBC WITH AUTO DIFF [HEME] AM Lab 02/03/19 05:11 Ordered Apixaban [Eliquis] Med 02/02/19 21:00 Ordered 2.5 mg PO BID Furosemide [Lasix] Med 02/03/19 09:00 Ordered 40 mg PO DAILY Latanoprost [Xalatan 0.005% Ophth Soln] Med 02/02/19 21:00 Ordered DOSE ml EYEBOTH BEDTIME Losartan [Cozaar] Med 02/03/19 09:00 Ordered 25 mg PO DAILY Melatonin Med 02/02/19 20:11 Ordered 3 mg PO BEDTIME PRN Metoprolol Succinate [Toprol XL] Med 02/03/19 09:00 Ordered 25 mg PO DAILY Ondansetron [Zofran] Med 02/02/19 19:57 Ordered 4 mg IV Q4H PRN Prednisolone Acetate/Pf [Prednisolone Acet 1% Eye Drop] Med 02/02/19 21:00 Ordered 1 drop EYELF QID Sodium Chloride 0.9% [Saline Flush] Med 02/02/19 19:57 Ordered 10 ml FLUSH Q8HR PRN cefTRIAXone [Rocephin] Med 02/02/19 20:15 Ordered 1 gm IVPUSH Q12H metroNIDAZOLE/Normal Saline [Flagyl 500 MG in NS 100 ML Med 02/02/19 22:00 Ordered ] 500 mg Premix Bag 1 bag IV Q8H traMADol [Ultram] Med 02/02/19 20:08 Ordered 50 mg PO Q8HR PRN Saline Lock Insert [OM.PC] Routine Oth 02/02/19 19:57 Ordered Resuscitation Status Routine Resus Stat 02/02/19 19:57 Ordered Medication Orders Apixaban (Eliquis) 2.5 mg PO BID ROBB Ceftriaxone Sodium (Rocephin) 1 gm IVPUSH Q12H ROBB Furosemide (Lasix) 40 mg PO DAILY ROBB Metronidazole 500 mg/ Premix 100 mls @ 100 mls/hr IV Q8H ROBB Latanoprost (Xalatan 0.005% Ophth Soln) ml EYEBOTH BEDTIME ROBB Losartan Potassium (Cozaar) 25 mg PO DAILY ROBB Melatonin (Melatonin) 3 mg PO BEDTIME PRN PRN Reason: Insomnia Metoprolol Succinate (Toprol Xl) 25 mg PO DAILY ROBB Non-Formulary Medication (Prednisolone Acetate/Pf [Prednisolone Acet 1% Eye Drop ]) 1 drop EYELF QID ROBB Ondansetron HCl (Zofran) 4 mg IV Q4H PRN PRN Reason: Nausea/Vomiting Sodium Chloride (Saline Flush) 10 ml FLUSH Q8HR PRN PRN Reason: keep vein open Tramadol HCl (Ultram) 50 mg PO Q8HR PRN PRN Reason: Pain Assessment/Plan Comment:: History of present illness Sarai is an 83-year-old female was admitted last night (February 02) due to acute diverticulitis complicated by intramural abdominal abscess. I had seen her outlying [place] clinic when she came in complaining of four-day history of right lower quadrant abdominal pain along with reduced appetite.She stated initially it was a sharp pain transitioned to a dull ache with no exacerbating or alleviating symptoms. Patient did have right hemicolectomy surgery last year , no subsequent appendectomy. At the time of evaluation she had no nausea vomiting or diarrhea or fever, no history of hernia, no constipation. Labs were drawn at the time of the visit and she was sent home and I had also the next informing her of inflammatory marker elevation and the need for abdominal CT scanning. CT abdomen/pelvis --Acute diverticulitis in the sigmoid colon to the right of midline with an associated 3 cm intramural abscess. No free fluid or free air identified. --8 mm smoothly marginated nodule in the right lung base is unchanged since July 2017 and highly likely to be a benign process. --Previous right hemicolectomy. --Status of diverticulosis Consultations, discussed case with on-call surgeon [facility], recommend IV antibiotics, admission, close monitoring, eventually transitioning to PO antibiotics, will need follow-up colorectal surgery clinic ~[address] scan in 1 week Primary hospital problems Diverticulitis, complicated, intramural abscess Chronic problems PAF, [id number] high 7, NSR, ECHO 06/09, EF 45% global hypokinesis LV, grade 2 LV diastolic dysfunction, mild LV thickness, Apixaban Recent [place], likely type 2 hemodynamic, stable LV Diastolic dysfunction, Lasix, ACEI, BB HTN, stable, ARB, BB HLD, statin Hx cerebral infarction Osteoporosis, vitamin D, calcium, History of flash pulmonary edema, requiring intubation, Lasix Anxiety, stable, Status post cataract surgery, stable, Disposition/overall plan. Continue acute care stay with ongoing IV antibiotics, likely will transition to oral Flagyl after 48 hours, close monitoring, will need follow-up colorectal surgery clinic ~[address] scan in 1 week. Ongoing monitoring for any abdominal pain, tachycardia, fever, abdominal distention or vomiting or any respiratory compromise. CBC BMP in the a.m.
[2019-02-02] MEDS ORDERED: Sodium Chloride 0.9% 250 ML ONE (20:21)
[2019-02-02] MEDS: cefTRIAXone 1 GM Vial IVPUSH SCH (20:29)
[2019-02-02] MEDS ORDERED: prednisoLONE Acetate 1% Ophth Susp 5 ML Bottle EYELF SCH (21:00)
[2019-02-02] MEDS: PREDNISOLONE ACETATE 1% EYELF SCH (21:05)
[2019-02-02] MEDS: Apixaban 5 MG Tab PO SCH (21:06)
[2019-02-02] MEDS: metroNIDAZOLE/Normal Saline 500 MG in Premix Bag 1 BAG IV SCH (21:07)
[2019-02-02] MEDS: Latanoprost 0.005% Ophth Soln 2.5 ML Bottle EYEBOTH SCH (21:10)
[2019-02-02] MEDS: traMADol 50 MG Tab PO PRN (21:12)
[2019-02-02] MEDS: Sodium Chloride 0.9% 250 ML IV SCH (21:14)
[2019-02-03] MEDS: metroNIDAZOLE/Normal Saline 500 MG in Premix Bag 1 BAG IV SCH ×3 (05:59→22:14)
[2019-02-03] MEDS: cefTRIAXone 1 GM Vial IVPUSH SCH ×2 (08:03→20:51)
[2019-02-03] MEDS: Sodium Chloride 0.9% 10 ML Syringe FLUSH PRN ×3 (08:04→20:59)
[2019-02-03] MEDS: Apixaban 5 MG Tab PO SCH ×2 (08:56→20:49)
[2019-02-03] MEDS: Metoprolol Succinate 25 MG Tab.ER PO SCH (08:57)
[2019-02-03] MEDS: Losartan 25 MG Tab PO SCH (08:57)
[2019-02-03] MEDS: PREDNISOLONE ACETATE 1% EYELF SCH ×4 (08:58→20:49)
[2019-02-03] MEDS ORDERED: Furosemide 40 MG Tab PO SCH (09:00)
--- NOTE | 2019-02-03 10:10 | PCM.PN ---
- General Info Date of Service: 02/03/19 Functional Status: Reports: Pain Controlled, Tolerating Diet, Urinating. Denies : New Symptoms - Review of Systems General: Reports: Other (Insomnia last night). Denies: Fever, Weakness, Fatigue , Malaise, Chills, Night Sweats HEENT: Reports: Visual Changes (Recent cataract) Pulmonary: Reports: No Symptoms Cardiovascular: Reports: Dyspnea on Exertion Gastrointestinal: Denies: Abdominal Pain, Constipation, Decreased Appetite, Diarrhea, Melena, Nausea, Vomiting Genitourinary: Reports: No Symptoms Musculoskeletal: Reports: No Symptoms Skin: Reports: No Symptoms Neurological: Reports: No Symptoms Psychiatric: Reports: No Symptoms - Patient Data Vitals - Most Recent: Last Vital Signs Temp 98.0 F 02/03/19 06:51 Pulse 79 02/03/19 08:57 Resp 20 02/03/19 06:51 BP 102/52 L 02/03/19 08:57 Pulse Ox 93 L 02/03/19 06:51 Weight - Most Recent: 110 lb 1.6 oz I&O - Last 24 Hours: Intake & Output 02/02/19 02/03/19 02/03/19 22:59 06:59 14:59 Intake Total 540 400 Output Total 100 1100 Balance 440 -700 Lab Results Last 24 Hours: Laboratory Results - last 24 hr 02/03/19 Range/Units 07:15 WBC 12.40 H (5.00-10.00) 10^3/uL RBC 3.33 L (3.80-5.50) 10^6/uL Hgb 9.9 L D (12.0-16.0) g/dL Hct 30.5 L (37.0-47.0) % MCV 91.6 (82.0-92.0) fL MCH 29.7 (27.0-31.0) pg MCHC 32.5 (32.0-36.0) g/dL RDW 13.0 (11.5-14.5) % Plt Count 294 (150-400) 10^3/uL MPV 9.3 (7.4-10.4) fL Immature Gran % (Auto) 0.1 (0.0-5.0) % Neut % (Auto) 76.6 H (50.0-70.0) % Lymph % (Auto) 14.0 L (20.0-40.0) % [place] % (Auto) 7.6 (2.0-8.0) % Eos % (Auto) 1.5 (1.0-3.0) % Baso % (Auto) 0.2 (0.0-1.0) % Immature Gran # (Auto) 0.01 (0.00-0.50) 10^3/uL Neut # (Auto) 9.52 H (2.50-7.00) 10^3/uL Lymph # (Auto) 1.73 (1.00-4.00) 10^3/uL [place] # (Auto) 0.94 H (0.10-0.80) 10^3/uL Eos # (Auto) 0.18 (0.10-0.30) 10^3/uL Baso # (Auto) 0.02 (0.00-0.10) 10^3/uL Med Orders - Current: Current Medications Apixaban (Eliquis) 2.5 mg PO BID [facility] Last Admin: 02/03/19 08:56 Dose: 2.5 mg Ceftriaxone Sodium (Rocephin) 1 gm IVPUSH Q12H [facility] Last Admin: 02/03/19 08:03 Dose: 1 gm Furosemide (Lasix) 40 mg PO DAILY [facility] Last Admin: 02/03/19 08:57 Dose: 40 mg Metronidazole 500 mg/ Premix 100 mls @ 100 mls/hr IV Q8H [facility] Last Admin: 02/03/19 05:59 Dose: 100 mls/hr Sodium Chloride (Normal Saline) 250 mls @ 100 mls/hr IV DAILY [facility] Last Admin: 02/02/19 21:14 Dose: 100 mls/hr Latanoprost (Xalatan 0.005% Ophth Soln) 0 ml EYEBOTH BEDTIME [facility] Last Admin: 02/02/19 21:10 Dose: 1 drop Losartan Potassium (Cozaar) 25 mg PO DAILY [facility] Last Admin: 02/03/19 08:57 Dose: 25 mg Metoprolol Succinate (Toprol Xl) 25 mg PO DAILY [facility] Last Admin: 02/03/19 08:57 Dose: 25 mg Ondansetron HCl (Zofran) 4 mg IV Q4H PRN PRN Reason: Nausea/Vomiting Last Admin: 02/03/19 05:59 Dose: 4 mg Prednisolone Acetate (Pred Forte 1% Ophth Susp) 0 ml EYELF QID ORBB Last Admin: 02/03/19 08:58 Dose: 1 drop Sodium Chloride (Saline Flush) 10 ml FLUSH Q8HR PRN PRN Reason: keep vein open Last Admin: 02/03/19 08:04 Dose: 10 ml Tramadol HCl (Ultram) 50 mg PO Q8HR PRN PRN Reason: Pain Last Admin: 02/02/19 21:12 Dose: 50 mg Zolpidem Tartrate (Ambien) 5 mg PO BEDTIME PRN PRN Reason: Insomnia Discontinued Medications Sodium Chloride (Normal Saline) Confirm Administered Dose 250 mls @ as directed .ROUTE .[facility] Stop: 02/02/19 20:22 Last Admin: 02/02/19 21:02 Dose: Not Given Melatonin (Melatonin) 3 mg PO BEDTIME PRN PRN Reason: Insomnia Last Admin: 02/02/19 21:13 Dose: 3 mg Prednisolone Acetate (Pred Forte 1% Ophth Susp) 0 ml EYELF QID ROBB - Exam Quality Assessment: 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 No: Supplemental Oxygen General: Alert, Oriented Neck: Supple. No: JVD Lungs: Clear to Auscultation, Normal Respiratory Effort Cardiovascular: Regular Rate, Regular Rhythm (Female) Exam: Deferred Back Exam: No: CVA Tenderness (L), CVA Tenderness (R) Extremities: No Pedal Edema Peripheral Pulses: 2+: Radial (L), Radial (R) Skin: Warm, Dry, Intact Neurological: No New Focal Deficit Psy/Mental Status: Alert, Normal Affect, Normal Mood - Problem List Review Problem List Initiated/Reviewed/Updated: Yes - My Orders Last 24 Hours: My Active Orders 02/02/19 18:40 Admission Status [Patient Status] [ADT] Routine 02/02/19 19:57 May Shower [RC] ASDIRECTED Notify Provider Vital Signs [RC] ASDIRECTED Oxygen Therapy [RC] PRN Up to Chair [RC] ASDIRECTED VTE/DVT Education [RC] PER UNIT ROUTINE Vital Signs [RC] 0300,0700,1100,1500,1900,2300 Ondansetron [Zofran] 4 mg IV Q4H PRN Sodium Chloride 0.9% [Saline Flush] 10 ml FLUSH Q8HR PRN Saline Lock Insert [OM.PC] Routine Resuscitation Status Routine 02/02/19 20:00 cefTRIAXone [Rocephin] 1 gm IVPUSH Q12H 02/02/19 20:08 traMADol [Ultram] 50 mg PO Q8HR PRN 02/02/19 21:00 Apixaban [Eliquis] 2.5 mg PO BID Latanoprost [Xalatan 0.005% Ophth Soln] 0 ml EYEBOTH BEDTIME Sodium Chloride 0.9% [Normal Saline] 250 ml IV DAILY prednisoLONE acetate [Pred Forte 1% Ophth Susp] 0 ml EYELF QID 02/02/19 22:00 metroNIDAZOLE/Normal Saline [Flagyl 500 MG in NS 100 ML] 500 mg Premix Bag 1 bag IV Q8H 02/03/19 09:00 Furosemide [Lasix] 40 mg PO DAILY Losartan [Cozaar] 25 mg PO DAILY Metoprolol Succinate [Toprol XL] 25 mg PO DAILY 02/03/19 09:57 Zolpidem [Ambien] 5 mg PO BEDTIME PRN 02/03/19 Breakfast Low Residue [Low Fiber Diet] [DIET] 02/04/19 05:11 BASIC METABOLIC PANEL,BMP [CHEM] AM 02/04/19 05:15 CBC WITH AUTO DIFF [HEME] AM - Plan Plan:: History of present illness Sarai davila an 83-year-old female was admitted last night (February 02) due to acute diverticulitis complicated by intramural abdominal abscess. I had seen her outlying [place] clinic when she came in complaining of four-day history of right lower quadrant abdominal pain along with reduced appetite.She stated initially it was a sharp pain transitioned to a dull ache with no exacerbating or alleviating symptoms. Patient did have right hemicolectomy surgery last year , no subsequent appendectomy. At the time of evaluation she had no nausea vomiting or diarrhea or fever, no history of hernia, no constipation. Labs were drawn at the time of the visit and she was sent home and I had also the next informing her of inflammatory marker elevation and the need for abdominal CT scanning. CT abdomen/pelvis --Acute diverticulitis in the sigmoid colon to the right of midline with an associated 3 cm intramural abscess. No free fluid or free air identified. --8 mm smoothly marginated nodule in the right lung base is unchanged since July 2017 and highly likely to be a benign process. --Previous right hemicolectomy. --Status of diverticulosis Consultations, discussed case with on-call surgeon Blaise Rojas, recommend IV antibiotics, admission, close monitoring, eventually transitioning to PO antibiotics, will need follow-up colorectal surgery clinic ~[address] scan in 1 week Update during rounds, patient sitting in chair, abdominal pain resolved, no fever, insomnia last night, feels good, had bowel movement, tolerating low residue diet, no abdominal distention hemodynamically stable Primary hospital problems Diverticulitis, complicated, intramural abscess Chronic problems Severe diverticulosis PAF, [id number] high 7, NSR, ECHO 06/09, EF 45% global hypokinesis LV, grade 2 LV diastolic dysfunction, mild LV thickness, Apixaban Recent [place], likely type 2 hemodynamic, stable LV Diastolic dysfunction, Lasix, ACEI, BB HTN, stable, ARB, BB HLD, statin Hx cerebral infarction Osteoporosis, vitamin D, calcium, History of flash pulmonary edema, requiring intubation, Lasix Anxiety, stable, Status post cataract surgery, stable, Disposition/overall plan. Continue acute care stay with ongoing IV antibiotics, likely will transition to oral Flagyl after 48 hours, close monitoring, will need follow-up colorectal surgery clinic ~[address] scan in 1 week. Ongoing monitoring for any abdominal pain, tachycardia, fever, abdominal distention or vomiting.
[2019-02-03] MEDS: Sodium Chloride 0.9% 250 ML IV SCH (13:57)
[2019-02-03] MEDS: Latanoprost 0.005% Ophth Soln 2.5 ML Bottle EYEBOTH SCH (20:50)
[2019-02-03] MEDS: Zolpidem 5 MG Tab PO PRN (23:29)
[2019-02-04] MEDS: metroNIDAZOLE/Normal Saline 500 MG in Premix Bag 1 BAG IV SCH (06:09)
[2019-02-04 07:48] LABS: ANION GAP 11.8 mmol/L (5-15); CHLORIDE,CL 101 mmol/L (98-115); SODIUM,NA 140 mmol/L (136-145)
[2019-02-04] MEDS ORDERED: Furosemide 40 MG/4 ML VIAL IVPUSH ONE (08:36)
[2019-02-04] MEDS: cefTRIAXone 1 GM Vial IVPUSH SCH ×2 (09:00→20:43)
[2019-02-04] MEDS: Apixaban 5 MG Tab PO SCH ×2 (09:22→20:43)
[2019-02-04] MEDS: Metoprolol Succinate 25 MG Tab.ER PO SCH (09:23)
[2019-02-04] MEDS: PREDNISOLONE ACETATE 1% EYELF SCH ×4 (09:32→20:44)
--- NOTE | 2019-02-04 09:40 | PCM.PN ---
- General Info Date of Service: 02/04/19 Functional Status: Reports: Pain Controlled, Tolerating Diet. Denies: New Symptoms - Review of Systems General: Reports: Appetite. Denies: Fever, Weakness, Fatigue, Malaise, Chills, Night Sweats HEENT: Reports: No Symptoms Pulmonary: Denies: Shortness of Breath, Cough, Sputum, Hemoptysis, Wheezing Cardiovascular: Reports: Dyspnea on Exertion. Denies: Chest Pain, Palpitations , Orthopnea, PND, Edema, Lightheadedness Gastrointestinal: Reports: Abdominal Pain (very slight dull periodic right lower quadrant abdominal pain) Genitourinary: Reports: No Symptoms Musculoskeletal: Reports: No Symptoms Neurological: Reports: No Symptoms Psychiatric: Reports: No Symptoms - Patient Data Vitals - Most Recent: Last Vital Signs Temp 98.3 F 02/04/19 07:00 Pulse 68 02/04/19 09:23 Resp 16 02/04/19 07:00 BP 104/60 02/04/19 09:23 Pulse Ox 98 02/04/19 09:00 Weight - Most Recent: 111 lb 4.8 oz I&O - Last 24 Hours: Intake & Output 02/03/19 02/04/19 02/04/19 22:59 06:59 14:59 Intake Total 425 330 Output Total 700 500 Balance -275 -170 Lab Results Last 24 Hours: Laboratory Results - last 24 hr 02/04/19 02/04/19 Range/Units 07:15 07:15 WBC 12.36 H (5.00-10.00) 10^3/uL RBC 3.50 L (3.80-5.50) 10^6/uL Hgb 10.4 L (12.0-16.0) g/dL Hct 32.4 L (37.0-47.0) % MCV 92.6 H (82.0-92.0) fL MCH 29.7 (27.0-31.0) pg MCHC 32.1 (32.0-36.0) g/dL RDW 13.1 (11.5-14.5) % Plt Count 287 (150-400) 10^3/uL MPV 9.3 (7.4-10.4) fL Immature Gran % (Auto) 0.1 (0.0-5.0) % Neut % (Auto) 79.0 H (50.0-70.0) % Lymph % (Auto) 10.2 L (20.0-40.0) % [place] % (Auto) 9.3 H (2.0-8.0) % Eos % (Auto) 1.2 (1.0-3.0) % Baso % (Auto) 0.2 (0.0-1.0) % Immature Gran # (Auto) 0.01 (0.00-0.50) 10^3/uL Neut # (Auto) 9.76 H (2.50-7.00) 10^3/uL Lymph # (Auto) 1.26 (1.00-4.00) 10^3/uL [place] # (Auto) 1.15 H (0.10-0.80) 10^3/uL Eos # (Auto) 0.15 (0.10-0.30) 10^3/uL Baso # (Auto) 0.03 (0.00-0.10) 10^3/uL Sodium 140 (136-145) mmol/L Potassium 3.7 (3.3-5.3) mmol/L Chloride 101 (98-115) mmol/L Carbon Dioxide 30.9 (21.0-32.0) mmol/L Anion Gap 11.8 (5-15) mmol/L BUN 13 (6-25) mg/dL Creatinine 0.80 (0.51-1.17) mg/dL Est Cr Clr Drug Dosing 39.61 mL/min Estimated GFR (MDRD) > 60 mL/min Glucose 93 (75 - 99) mg/dL Calcium 8.5 L (8.7-10.3) mg/dL Med Orders - Current: Current Medications Apixaban (Eliquis) 2.5 mg PO BID [facility] Last Admin: 02/04/19 09:22 Dose: 2.5 mg Ceftriaxone Sodium (Rocephin) 1 gm IVPUSH Q12H [facility] Last Admin: 02/04/19 09:00 Dose: 1 gm Furosemide (Lasix) 40 mg PO DAILY [facility] Last Admin: 02/03/19 08:57 Dose: 40 mg Metronidazole 500 mg/ Premix 100 mls @ 100 mls/hr IV Q8H [facility] Last Admin: 02/04/19 06:09 Dose: 100 mls/hr Sodium Chloride (Normal Saline) 250 mls @ 100 mls/hr IV DAILY [facility] Last Admin: 02/03/19 13:57 Dose: 100 mls/hr Latanoprost (Xalatan 0.005% Ophth Soln) 0 ml EYEBOTH BEDTIME [facility] Last Admin: 02/03/19 20:50 Dose: 1 drop Losartan Potassium (Cozaar) 25 mg PO DAILY [facility] Last Admin: 02/03/19 08:57 Dose: 25 mg Metoprolol Succinate (Toprol Xl) 25 mg PO DAILY [facility] Last Admin: 02/04/19 09:23 Dose: 25 mg Ondansetron HCl (Zofran) 4 mg IV Q4H PRN PRN Reason: Nausea/Vomiting Last Admin: 02/03/19 05:59 Dose: 4 mg Prednisolone Acetate (Pred Forte 1% Ophth Susp) 0 ml EYELF QID [facility] Last Admin: 02/03/19 20:49 Dose: 1 drop Sodium Chloride (Saline Flush) 10 ml FLUSH Q8HR PRN PRN Reason: keep vein open Last Admin: 02/03/19 20:59 Dose: 10 ml Tramadol HCl (Ultram) 50 mg PO Q8HR PRN PRN Reason: Pain Last Admin: 02/02/19 21:12 Dose: 50 mg Zolpidem Tartrate (Ambien) 5 mg PO BEDTIME PRN PRN Reason: Insomnia Last Admin: 02/03/19 23:29 Dose: 5 mg Discontinued Medications Furosemide (Lasix) 40 mg IVPUSH NOW ONE Stop: 02/04/19 08:37 Sodium Chloride (Normal Saline) Confirm Administered Dose 250 mls @ as directed .ROUTE .STK-MED ONE Stop: 02/02/19 20:22 Last Admin: 02/02/19 21:02 Dose: Not Given Melatonin (Melatonin) 3 mg PO BEDTIME PRN PRN Reason: Insomnia Last Admin: 02/02/19 21:13 Dose: 3 mg Prednisolone Acetate (Pred Forte 1% Ophth Susp) 0 ml EYELF QID [facility] - Exam Quality Assessment: Supplemental Oxygen (hypoxic withoygen), DVT Prophylaxis General: Alert, Oriented, Cooperative, No Acute Distress Neck: No JVD Lungs: Crackles, Rales. No: Decreased Breath Sounds, Wheezing Cardiovascular: Regular Rate, Regular Rhythm GI/Abdominal Exam: Normal Bowel Sounds, Soft, No Distention, Guarding, Tender ( slight tenderness right lower rant), Mass. No: Distended, Rigid Back Exam: No: CVA Tenderness (L), CVA Tenderness (R) Extremities: No Pedal Edema Neurological: No New Focal Deficit Psy/Mental Status: Alert, Normal Affect, Normal Mood - Problem List Review Problem List Initiated/Reviewed/Updated: Yes - My Orders Last 24 Hours: My Active Orders 02/03/19 09:00 Furosemide [Lasix] 40 mg PO DAILY Losartan [Cozaar] 25 mg PO DAILY Metoprolol Succinate [Toprol XL] 25 mg PO DAILY 02/03/19 09:57 Zolpidem [Ambien] 5 mg PO BEDTIME PRN 02/04/19 08:39 Daily Weight [Height and Weight] [RC] 0700 02/04/19 08:40 Incentive Spirometry [RT Incentive Spirometry] [RC] Q1HWA Intake and Output [RC] 1400,2200,0600 - Plan Plan:: History of present illness Sarai davila an 83-year-old female was admitted last night (February 02) due to acute diverticulitis complicated by intramural abdominal abscess. I had seen her outlying [facility] when she came in complaining of four-day history of right lower quadrant abdominal pain along with reduced appetite.She stated initially it was a sharp pain transitioned to a dull ache with no exacerbating or alleviating symptoms. Patient did have right hemicolectomy surgery last year , no subsequent appendectomy. At the time of evaluation she had no nausea vomiting or diarrhea or fever, no history of hernia, no constipation. Labs were drawn at the time of the visit and she was sent home and I had also the next informing her of inflammatory marker elevation and the need for abdominal CT scanning. CT abdomen/pelvis --Acute diverticulitis in the sigmoid colon to the right of midline with an associated 3 cm intramural abscess. No free fluid or free air identified. --8 mm smoothly marginated nodule in the right lung base is unchanged since July 2017 and highly likely to be a benign process. --Previous right hemicolectomy. --Status of diverticulosis Consultations, discussed case with on-call surgeon [facility], recommend IV antibiotics, admission, close monitoring, eventually transitioning to PO antibiotics, will need follow-up colorectal surgery clinic ~[address] scan in 1 week Primary hospital problems Diverticulitis, complicated, intramural abscess Chronic problems PAF, [id number] high 7, NSR, ECHO 06/09, EF 45% global hypokinesis LV, grade 2 LV diastolic dysfunction, mild LV thickness, Apixaban Recent [place], likely type 2 hemodynamic, stable LV Diastolic dysfunction, Lasix, ACEI, BB HTN, stable, ARB, BB HLD, statin Hx cerebral infarction Osteoporosis, vitamin D, calcium, History of flash pulmonary edema, requiring intubation, Lasix Anxiety, stable, Status post cataract surgery, stable, Disposition/overall plan. Continue acute care stay with ongoing IV antibiotics. change Flagyl to PO, change Lasix to IV, increase Lasix today, K+ supplementation, encourage incentive spirometer, add daily weights, I/O, hold ARB today, Ongoing monitoring for any abdominal pain, tachycardia, fever, abdominal distention or vomiting or any respiratory compromise especially in light of history of flash pulmonary edema. ambulate in halls today, CBC BMP in the a.m. will need follow-up colorectal surgery clinic ~[address] scan in 1 week
[2019-02-04] MEDS: metroNIDAZOLE 500 MG Tab PO SCH ×2 (12:17→16:56)
[2019-02-04] MEDS ORDERED: Potassium Bicarbonate/Potassium Chloride 25 MEQ Tab.Eff PO SCH (17:00)
[2019-02-04] MEDS: Potassium Bicarbonate 25 MEQ Tab.EFF PO SCH (17:35)
[2019-02-04] MEDS: Sodium Chloride 0.9% 250 ML IV SCH (19:49)
[2019-02-04] MEDS: Latanoprost 0.005% Ophth Soln 2.5 ML Bottle EYEBOTH SCH (20:43)
[2019-02-04] MEDS: Zolpidem 5 MG Tab PO PRN (20:54)
[2019-02-05] MEDS: metroNIDAZOLE 500 MG Tab PO SCH ×2 (03:11→08:46)
[2019-02-05] MEDS: cefTRIAXone 1 GM Vial IVPUSH SCH (08:44)
[2019-02-05] MEDS: Apixaban 5 MG Tab PO SCH (08:46)
[2019-02-05] MEDS: Potassium Bicarbonate 25 MEQ Tab.EFF PO SCH (08:46)
[2019-02-05] MEDS: PREDNISOLONE ACETATE 1% EYELF SCH (08:47)
[2019-02-05] MEDS: Losartan 25 MG Tab PO SCH (08:49)
[2019-02-05] MEDS: Metoprolol Succinate 25 MG Tab.ER PO SCH (08:50)
[2019-02-05] MEDS: Sodium Chloride 0.9% 10 ML Syringe FLUSH PRN (08:52)
--- NOTE | 2019-02-05 10:44 | PCM.DCSUM1 ---
Discharge Summary - Hospital Course Diagnosis: Stroke: No - Discharge Data Discharge Date: 02/05/19 Discharge Disposition: Home, Self-Care 01 Condition: Good - Patient Instructions Diet, Other: Low residue diet Activity: As Tolerated Driving: May Drive Today Showering/Bathing: May Shower Notify Provider of: Fever, Increased Pain, Nausea and/or Vomiting Other/Special Instructions: You will have another abdominal CT scan next week at [facility]. Do not eat or drink anything the night before your CAT scan. Follow-up next week [facility] in the afternoon. Continue taking your antibiotics - Discharge Plan *PRESCRIPTION DRUG MONITORING PROGRAM REVIEWED*: No *COPY OF PRESCRIPTION DRUG MONITORING REPORT IN PATIENT GEMMA: No Prescriptions/Med Rec: Ciprofloxacin [Cipro XR] 500 mg PO DAILY #14 tab.er metroNIDAZOLE [Flagyl] 500 mg PO Q8H #18 tablet Home Medications: Home Meds Cholecalciferol (Vitamin D3) [Vitamin D3] 2,000 unit PO DAILY 04/07/17 [History] Latanoprost 1 drop EYEBOTH BEDTIME 04/07/17 [History] Biotin 5 mg PO DAILY 07/24/18 [History] Magnesium Oxide [Magnesium] 400 mg PO DAILY PRN 07/24/18 [History] traMADol [Ultram] 50 mg PO Q8HR PRN 07/24/18 [History] Prednisolone Acetate/Pf [Prednisolone Acet 1% Eye Drop] 1 drop EYELF QID [History] Apixaban [Eliquis] 2.5 mg PO BID #60 tablet 07/30/18 [Rx] Furosemide [Lasix] 40 mg PO DAILY 01/25/19 [History] Losartan [Cozaar] 25 mg PO DAILY 01/25/19 [History] Metoprolol Succinate [Toprol XL] 25 mg PO DAILY 01/25/19 [History] Simvastatin [Zocor] 60 mg PO DAILY 01/25/19 [History] Furosemide [Lasix] 40 mg PO DAILY PRN 02/02/19 [History] Ciprofloxacin [Cipro XR] 500 mg PO DAILY #14 tab.er 02/05/19 [Rx] metroNIDAZOLE [Flagyl] 500 mg PO Q8H #18 tablet 02/05/19 [Rx] - Discharge Summary/Plan Comment DC Time >30 min.: Yes Discharge Summary/Plan Comment: Final diagnosis Diverticulitis, complicated, intramural abscess Chronic problems PAF, [id number] high 7, NSR, ECHO 06/09, EF 45% global hypokinesis LV, grade 2 LV diastolic dysfunction, mild LV thickness, Apixaban Recent [place], likely type 2 hemodynamic, stable LV Diastolic dysfunction, Lasix, ACEI, BB HTN, stable, ARB, BB HLD, statin Hx cerebral infarction Osteoporosis, vitamin D, calcium, History of flash pulmonary edema, requiring intubation, Lasix Anxiety, stable, Status post cataract surgery, stable, follow-up with Dr. Jack History 83-year-old female was admitted [facility] due to acute diverticulitis complicated by intramural abdominal abscess. She was evaluated by myself outlying [facility] when she came in complaining of f4-day history of right lower quadrant abdominal pain along with reduced appetite.That time she stated initially it was a sharp pain transitioned to a dull ache with no exacerbating or alleviating symptoms. Patient did have right hemicolectomy surgery last year , no subsequent appendectomy. At the time of evaluation she had no nausea vomiting or diarrhea or fever, no history of hernia, no constipation. Labs were drawn at the time of the visit and she was sent home with close up the next morning. Labs returned next day with inflammatory marker elevation therefore center to [facility] abdominal CT scanning is [facility] CT scan was down for repairs. Subsequent CT abdomen/pelvis results demonstrated patient to have: --Acute diverticulitis in the sigmoid colon to the right of midline with an associated 3 cm intramural abscess however no free fluid or free air identified. --8 mm smoothly marginated nodule in the right lung base is unchanged since July 2017 and highly likely to be a benign process. --Previous right hemicolectomy was noted. Patient was therefore admitted to [facility] for dual IV antibiotics and close monitoring Hospital course Went well without complications other than mild crackles lower bases requiring slightly increase in diuretic therapy. No signs and symptoms of complications. No signs and symptoms of sepsis, temperature maximum 100.8 however afebrile upon discharge. Her abdominal pain waxed and waned however was very minimal on day 2 of antibiotics. She was given IV fluids with no signs and symptoms of overt fluid overload. White count trending down upon discharge. 11.63 upon discharge. No electrolyte disturbance Consultation/referrals Case was discussed with on-call surgeon Blaise Rojas, recommend IV antibiotics , trransitioning to PO antibiotics, will need follow-up colorectal surgery clinic ~[address] scan in 1 week (scheduled [facility] February 10) Medication changes/adjustments upon discharge Ciprofloxacin 500 mg by mouth twice a day 7 days metronidazole 500 mg by mouth every 8 hours 6 days OTC probiotics Patient instructions upon discharge --You will have another abdominal CT scan next week at [facility], ( scheduled [facility] February 10) --Do not eat or drink anything the night before your CAT scan --Follow-up next week [facility] in the afternoon --Continue taking your antibiotics Recommendations at follow-up --Ensure abdominal CT read stat --Will need colorectal surgery clinic appointment ~next weeks - General Info Functional Status: Reports: Pain Controlled, Tolerating Diet, Ambulating, Urinating. Denies: New Symptoms - Review of Systems General: Reports: Appetite. Denies: Fever, Weakness, Fatigue, Malaise, Chills Pulmonary: Reports: No Symptoms Cardiovascular: Denies: Dyspnea on Exertion, Orthopnea, Edema Gastrointestinal: Denies: Abdominal Pain, Constipation, Diarrhea, Nausea Genitourinary: Denies: Dysuria Musculoskeletal: Reports: No Symptoms Skin: Reports: No Symptoms Neurological: Reports: No Symptoms Psychiatric: Reports: No Symptoms - Patient Data Vitals - Most Recent: Last Vital Signs Temp 97.9 F 02/05/19 06:37 Pulse 63 02/05/19 06:37 Resp 20 02/05/19 06:37 BP 104/63 02/05/19 06:37 Pulse Ox 99 02/05/19 06:37 Weight - Most Recent: 111 lb 4.8 oz I&O - Last 24 hours: Intake & Output 02/04/19 02/05/19 02/05/19 22:59 06:59 14:59 Intake Total 650 200 Output Total 200 0 Balance 450 200 Lab Results - Last 24 hrs: Laboratory Results - last 24 hr 02/05/19 Range/Units 07:10 WBC 11.63 H (5.00-10.00) 10^3/uL RBC 3.29 L (3.80-5.50) 10^6/uL Hgb 9.8 L (12.0-16.0) g/dL Hct 30.3 L (37.0-47.0) % MCV 92.1 H (82.0-92.0) fL MCH 29.8 (27.0-31.0) pg MCHC 32.3 (32.0-36.0) g/dL RDW 13.1 (11.5-14.5) % Plt Count 291 (150-400) 10^3/uL MPV 9.6 (7.4-10.4) fL Immature Gran % (Auto) 0.2 (0.0-5.0) % Neut % (Auto) 76.2 H (50.0-70.0) % Lymph % (Auto) 12.2 L (20.0-40.0) % [place] % (Auto) 9.4 H (2.0-8.0) % Eos % (Auto) 1.8 (1.0-3.0) % Baso % (Auto) 0.2 (0.0-1.0) % Immature Gran # (Auto) 0.02 (0.00-0.50) 10^3/uL Neut # (Auto) 8.87 H (2.50-7.00) 10^3/uL Lymph # (Auto) 1.42 (1.00-4.00) 10^3/uL [place] # (Auto) 1.09 H (0.10-0.80) 10^3/uL Eos # (Auto) 0.21 (0.10-0.30) 10^3/uL Baso # (Auto) 0.02 (0.00-0.10) 10^3/uL Med Orders - Current: Current Medications Apixaban (Eliquis) 2.5 mg PO BID [facility] Last Admin: 02/05/19 08:46 Dose: 2.5 mg Ceftriaxone Sodium (Rocephin) 1 gm IVPUSH Q12H [facility] Last Admin: 02/05/19 08:44 Dose: 1 gm Furosemide (Lasix) 40 mg PO DAILY [facility] Last Admin: 02/03/19 08:57 Dose: 40 mg Latanoprost (Xalatan 0.005% Ophth Soln) 0 ml EYEBOTH BEDTIME [facility] Last Admin: 02/04/19 20:43 Dose: 1 drop Losartan Potassium (Cozaar) 25 mg PO DAILY [facility] Last Admin: 02/05/19 08:49 Dose: Not Given Metoprolol Succinate (Toprol Xl) 25 mg PO DAILY [facility] Last Admin: 02/05/19 08:50 Dose: Not Given Metronidazole (Flagyl) 500 mg PO Q8H [facility] Last Admin: 02/05/19 08:46 Dose: 500 mg Ondansetron HCl (Zofran) 4 mg IV Q4H PRN PRN Reason: Nausea/Vomiting Last Admin: 02/03/19 05:59 Dose: 4 mg Potassium Bicarbonate (Klor-Con Ef) 25 meq PO DAILY [facility] Last Admin: 02/05/19 08:46 Dose: 25 meq Prednisolone Acetate (Pred Forte 1% Ophth Susp) 0 ml EYELF QID [facility] Last Admin: 02/05/19 08:47 Dose: 1 drop Sodium Chloride (Saline Flush) 10 ml FLUSH Q8HR PRN PRN Reason: keep vein open Last Admin: 02/05/19 08:52 Dose: 10 ml Tramadol HCl (Ultram) 50 mg PO Q8HR PRN PRN Reason: Pain Last Admin: 02/02/19 21:12 Dose: 50 mg Zolpidem Tartrate (Ambien) 5 mg PO BEDTIME PRN PRN Reason: Insomnia Last Admin: 02/04/19 20:54 Dose: 5 mg Discontinued Medications Furosemide (Lasix) 40 mg IVPUSH NOW ONE Stop: 02/04/19 08:37 Last Admin: 02/04/19 09:33 Dose: 40 mg Metronidazole 500 mg/ Premix 100 mls @ 100 mls/hr IV Q8H [facility] Last Admin: 02/04/19 06:09 Dose: 100 mls/hr Sodium Chloride (Normal Saline) Confirm Administered Dose 250 mls @ as directed .ROUTE .STK-MED ONE Stop: 02/02/19 20:22 Last Admin: 02/02/19 21:02 Dose: Not Given Sodium Chloride (Normal Saline) 250 mls @ 100 mls/hr IV DAILY [facility] Last Admin: 02/04/19 19:49 Dose: Not Given Melatonin (Melatonin) 3 mg PO BEDTIME PRN PRN Reason: Insomnia Last Admin: 02/02/19 21:13 Dose: 3 mg Prednisolone Acetate (Pred Forte 1% Ophth Susp) 0 ml EYELF QID [facility] - Exam Quality Assessment: Reports: Supplemental Oxygen General: Reports: Alert, Oriented Neck: Reports: Supple Lungs: Reports: Clear to Auscultation, Normal Respiratory Effort Cardiovascular: Reports: Regular Rhythm GI/Abdominal Exam: Normal Bowel Sounds, Soft, Non-Tender (Female) Exam: Deferred Extremities: No Pedal Edema Neurological: Reports: No New Focal Deficit Psy/Mental Status: Reports: Alert, Normal Affect, Normal Mood
[2019-02-05] MEDS: traMADol 50 MG Tab PO PRN (11:01)
[2019-02-05 11:16] VITALS: BP 126/58
== END 2019-02-05 12:10 | disposition home or self-care (01) | DRG 392 ==
LOC: KA.MS 18:40
PROVIDERS: ADMIT Nurse Practitioner Family; ATTEND Family Medicine
DX: K57.20 Diverticulitis of large intestine with perforation and abscess without bleeding (principal); I48.0 Paroxysmal atrial fibrillation; I10 Essential (primary) hypertension; E78.5 Hyperlipidemia, unspecified; M81.0 Age-related osteoporosis without current pathological fracture; F41.9 Anxiety disorder, unspecified; R91.1 Solitary pulmonary nodule; H54.7 Unspecified visual loss; E78.00 Pure hypercholesterolemia, unspecified; G89.29 Other chronic pain; M54.9 Dorsalgia, unspecified; Z96.659 Presence of unspecified artificial knee joint; I25.2 Old myocardial infarction; Z86.73 Personal history of transient ischemic attack (TIA), and cerebral infarction without residual deficits; Z98.49 Cataract extraction status, unspecified eye; Z90.49 Acquired absence of other specified parts of digestive tract; Z88.8 Allergy status to other drugs, medicaments and biological substances; Z86.010 Personal history of colon polyps; Z85.038 Personal history of other malignant neoplasm of large intestine; Z98.51 Tubal ligation status; Z87.891 Personal history of nicotine dependence
CPT/HCPCS: 36415; 80048; 85025; A4217; A9270-GY; J0696; J1940; J2405; J3490; J7050

== ENCOUNTER 2019-10-31 13:40 | Inpatient (IN) | payer MEDICARE, OTHER ==
[2019-10-31] MEDS: Sodium Chloride 0.9% 10 ML Syringe FLUSH PRN ×2 (14:22→21:24)
[2019-10-31] MEDS ORDERED: Albuterol/Ipratropium 3.0-0.5 MG/3 ML Neb Soln NEB ONE (14:28)
--- NOTE | 2019-10-31 14:34 | EDM.PDOC ---
ED HPI GENERAL MEDICAL PROBLEM - General Chief Complaint: Respiratory Problem Stated Complaint: DIFFICULTY BREATHING Time Seen by Provider: 10/31/19 14:26 Source of Information: Reports: Patient, EMS, EMS Notes Reviewed History Limitations: Reports: No Limitations - History of Present Illness INITIAL COMMENTS - FREE TEXT/NARRATIVE: Patient is an 83-year-old female who presents to the emergency department this afternoon via EMS secondary to a complaint for cough and fever. She states symptoms been going on for about 4 days and this morning she became short of breath. She decided to contact EMS. Patient states that the cough is productive for green sputum. She did not take temperature but has felt warm and sweaty. Patient denies contact with others who have similar symptoms. Patient does live at home with her son. Patient denies chest pain, nausea, vomiting, diarrhea, headache, extremity edema, abdominal pain, dysuria, or out of country travel. Onset: Gradual Duration: Day(s): Severity: Mild Improves with: Reports: None Worsens with: Reports: None Associated Symptoms: Reports: Cough, cough w sputum, Diaphoresis, Fever/Chills, Shortness of Breath. 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: Reports: Breathing Treatments, See EMS Report - Related Data Allergies Allergy/AdvReac Type Severity Reaction Status Date / Time warfarin [From Coumadin] Allergy Other Verified 10/31/19 13:55 Home Meds: Home Meds Cholecalciferol (Vitamin D3) [Vitamin D3] 2,000 unit PO DAILY 04/07/17 [History] Latanoprost 1 drop EYEBOTH BEDTIME 04/07/17 [History] Biotin 5 mg PO DAILY 07/24/18 [History] Magnesium Oxide [Magnesium] 400 mg PO DAILY PRN 07/24/18 [History] traMADol [Ultram] 50 mg PO Q8HR PRN 07/24/18 [History] Apixaban [Eliquis] 2.5 mg PO BID #60 tablet 07/30/18 [Rx] Furosemide [Lasix] 40 mg PO DAILY 01/25/19 [History] Losartan [Cozaar] 25 mg PO DAILY 01/25/19 [History] Metoprolol Succinate [Toprol XL] 25 mg PO DAILY 01/25/19 [History] Simvastatin [Zocor] 60 mg PO DAILY 01/25/19 [History] Furosemide [Lasix] 40 mg PO DAILY PRN 02/02/19 [History] Past Medical History HEENT History: Reports: Cataract, Glaucoma, Impaired Vision Other HEENT History: right cataract surgery last week. 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 Psychiatric History: Reports: None Hematologic History: Reports: None Immunologic History: Reports: None Oncologic (Cancer) History: Reports: Colon Dermatologic History: Reports: None - Infectious Disease History Infectious Disease History: Reports: Chicken Pox, Measles, Mumps - Past Surgical History Head Surgeries/Procedures: Reports: None HEENT Surgical History: Reports: Cataract Surgery, Oral Surgery Cardiovascular Surgical History: Reports: None GI Surgical History: Reports: Colonoscopy, Small Bowel Female Surgical History: Reports: Tubal Ligation Musculoskeletal Surgical History: Reports: Knee Replacement Oncologic Surgical History: Reports: Other (See Below) Other Oncologic Surgeries/Procedures: bowel resection 2016 Social & Family History - Family History Family Medical History: Noncontributory Cardiac: Reports: None Respiratory: Reports: None GI: Reports: None : Reports: None OBGYN: Reports: None Musculoskeletal: Reports: None Neurological: Reports: None Psychiatric: Reports: None Endocrine/Metabolic: Reports: None Hematologic: Reports: None Immunologic: Reports: None Oncologic: Reports: None - Caffeine Use Caffeine Use: Reports: None ED ROS GENERAL - Review of Systems Review Of Systems: Comprehensive ROS is negative, except as noted in HPI. Constitutional: Reports: Fever, Chills, Night Sweats HEENT: Reports: No Symptoms Respiratory: Reports: Shortness of Breath, Wheezing, Cough, Sputum (Green) Cardiovascular: Reports: No Symptoms Endocrine: Reports: No Symptoms GI/Abdominal: Reports: No Symptoms : Reports: No Symptoms Musculoskeletal: Reports: No Symptoms Skin: Reports: No Symptoms Neurological: Reports: No Symptoms Psychiatric: Reports: No Symptoms Hematologic/Lymphatic: Reports: No Symptoms Immunologic: Reports: No Symptoms ED EXAM, GENERAL - Physical Exam Exam: See Below Exam Limited By: No Limitations General Appearance: Alert, WD/WN, No Apparent Distress Eye Exam: Bilateral Eye: Normal Inspection Nose: Normal Inspection, Normal Mucosa, No Blood Throat/Mouth: Normal Inspection, Normal Oropharynx, No Airway Compromise Head: Atraumatic, Normocephalic Neck: Normal Inspection. No: Lymphadenopathy (L), Lymphadenopathy (R) Respiratory/Chest: No Respiratory Distress, No Accessory Muscle Use, Chest Non- Tender, Rales, Wheezing Cardiovascular: Regular Rate, Rhythm, No Murmur GI/Abdominal: Normal Bowel Sounds, Soft, Non-Tender Back Exam: Normal Inspection. No: CVA Tenderness (L), CVA Tenderness (R) Extremities: Normal Inspection, No Pedal Edema Neurological: Alert, Oriented, Normal Cognition Psychiatric: Normal Affect, Normal Mood Skin Exam: Warm, Dry, Intact, Normal Color, No Rash Lymphatic: No Adenopathy Course - Vital Signs Last Recorded V/S: Last Vital Signs Temp 99.6 F 10/31/19 13:51 Pulse 92 10/31/19 13:51 Resp 25 H 10/31/19 13:51 BP 127/47 L 10/31/19 13:51 Pulse Ox 91 L 10/31/19 14:28 - Orders/Labs/Meds Orders: Active Orders 24 hr Category Date Time Status Patient Status [ADT] Routine ADT 10/31/19 14:56 Ordered Oxygen Therapy [RC] PRN Care 10/31/19 14:56 Ordered Peripheral IV Care [RC] . DIRECTED Care 10/31/19 13:59 Active RT Aerosol Therapy [RC] ASDIRECTED Care 10/31/19 14:28 Ordered VTE/DVT Education [RC] PER UNIT ROUTINE Care 10/31/19 14:56 Ordered Vital Signs [RC] Q4H Care 10/31/19 14:56 Ordered Azithromycin [Zithromax] 500 mg Med 10/31/19 14:55 Ordered Sodium Chloride 0.9% [Normal Saline] 250 ml IV ONETIME Sodium Chloride 0.9% [Saline Flush] Med 10/31/19 13:58 Active 10 ml FLUSH Q8HR PRN cefTRIAXone [Rocephin] Med 10/31/19 14:55 Once 1 gm IVPUSH ONETIME ONE Peripheral IV Insertion Adult [OM.PC] Routine Oth 10/31/19 13:58 Ordered Resuscitation Status Routine Resus Stat 10/31/19 14:56 Ordered Medication Orders Sodium Chloride (Saline Flush) 10 ml FLUSH Q8HR PRN PRN Reason: keep vein open Last Admin: 10/31/19 14:22 Dose: 10 ml Labs: Laboratory Tests 10/31/19 10/31/19 Range/Units 14:20 14:20 WBC 11.83 H (5.00-10.00) 10^3/uL RBC 3.96 (3.80-5.50) 10^6/uL Hgb 11.6 L D (12.0-16.0) g/dL Hct 36.6 L (37.0-47.0) % MCV 92.4 H (82.0-92.0) fL MCH 29.3 (27.0-31.0) pg MCHC 31.7 L (32.0-36.0) g/dL RDW 13.2 (11.5-14.5) % Plt Count 235 (150-400) 10^3/uL MPV 10.2 (7.4-10.4) fL Immature Gran % (Auto) 0.1 (0.0-5.0) % Neut % (Auto) 75.4 H (50.0-70.0) % Lymph % (Auto) 8.7 L (20.0-40.0) % Pondera % (Auto) 15.2 H (2.0-8.0) % Eos % (Auto) 0.3 L (1.0-3.0) % Baso % (Auto) 0.3 (0.0-1.0) % Immature Gran # (Auto) 0.01 (0.00-0.50) 10^3/uL Neut # (Auto) 8.91 H (2.50-7.00) 10^3/uL Lymph # (Auto) 1.03 (1.00-4.00) 10^3/uL [place] # (Auto) 1.80 H (0.10-0.80) 10^3/uL Eos # (Auto) 0.04 L (0.10-0.30) 10^3/uL Baso # (Auto) 0.04 (0.00-0.10) 10^3/uL Sodium 137 (136-145) mmol/L Potassium 3.2 L (3.3-5.3) mmol/L Chloride 98 (98-115) mmol/L Carbon Dioxide 29.0 (21.0-32.0) mmol/L Anion Gap 13.2 (5-15) mmol/L BUN 15 (6-25) mg/dL Creatinine 0.77 (0.51-1.17) mg/dL Est Cr Clr Drug Dosing 41.16 mL/min Estimated GFR (MDRD) > 60 mL/min Glucose 170 H (75 - 99) mg/dL Calcium 8.7 (8.7-10.3) mg/dL Total Bilirubin 0.6 (0.2-1.0) mg/dL AST 23 (15-37) U/L ALT 26 (12-78) U/L Alkaline Phosphatase 69 (46-116) IU/L Total Protein 7.1 (6.4-8.2) g/dL Albumin 2.89 L (3.00-4.80) g/dL Meds: Medications Generic Name Dose Route Start Last Admin Trade Name Freq PRN Reason Stop Dose Admin Sodium Chloride 10 ml 10/31/19 13:58 10/31/19 14:22 Saline Flush FLUSH 10 ml Q8HR PRN Administration keep vein open Discontinued Medications Generic Name Dose Route Start Last Admin Trade Name Freq PRN Reason Stop Dose Admin Albuterol/Ipratropium 3 ml 10/31/19 14:28 10/31/19 14:30 Duoneb 3.0-0.5 Mg/3 Ml NEB 10/31/19 14:29 3 ml ONETIME ONE Administration - Radiology Interpretation Free Text/Narrative:: Chest x-ray shows significant COPD with suspicious right lower lobe consolidation - Re-Assessments/Exams Free Text/Narrative Re-Assessment/Exam: 10/31/19 14:58 Patient afebrile, vital signs stable, oxygen saturation 91% on 2 L nasal cannula. Wheezing mostly resolved following DuoNeb. Patient given 1 g IV Rocephin, 500 mg Zithromax IV. Case discussed with Blaise Fernando provider and patient will be admitted inpatient and followed. 10/31/19 14:59 Departure - Departure Time of Disposition: 14:58 Disposition: Admitted As Inpatient 68 Condition: Fair Clinical Impression: Hypoxemia Pneumonia Qualifiers: Pneumonia type: due to unspecified organism Laterality: bilateral Lung location : lower lobe of lung Qualified Code(s): J18.9 - Pneumonia, unspecified organism COPD (chronic obstructive pulmonary disease) Qualifiers: COPD type: COPD with acute lower respiratory infection Qualified Code(s): J44.0 - Chronic obstructive pulmonary disease with (acute) lower respiratory infection - Discharge Information Referrals: Lorne Nova SPECIAL EVENTS COORDINATOR [Primary Care Provider] - Forms: ED Department Discharge Sepsis Event Note - Evaluation Sepsis Screening Result: Possible Sepsis Risk - Focused Exam Vital Signs: Vital Signs Temp Pulse Resp BP Pulse Ox Pulse Ox 10/31/19 14:28 91 L 10/31/19 13:51 99.6 F 92 25 H 127/47 L 84 L Date Exam was Performed: 10/31/19 Time Exam was Performed: 14:57 - My Orders Last 24 Hours: My Active Orders 10/31/19 13:58 Sodium Chloride 0.9% [Saline Flush] 10 ml FLUSH Q8HR PRN Peripheral IV Insertion Adult [OM.PC] Routine 10/31/19 13:59 Peripheral IV Care [RC] . DIRECTED 10/31/19 14:28 RT Aerosol Therapy [RC] ASDIRECTED 10/31/19 14:55 Azithromycin [Zithromax] 500 mg Sodium Chloride 0.9% [Normal Saline] 250 ml IV ONETIME cefTRIAXone [Rocephin] 1 gm IVPUSH ONETIME ONE 10/31/19 14:56 Patient Status [ADT] Routine Oxygen Therapy [RC] PRN VTE/DVT Education [RC] PER UNIT ROUTINE Vital Signs [RC] Q4H Resuscitation Status Routine - Assessment/Plan Last 24 Hours: My Active Orders 10/31/19 13:58 Sodium Chloride 0.9% [Saline Flush] 10 ml FLUSH Q8HR PRN Peripheral IV Insertion Adult [OM.PC] Routine 10/31/19 13:59 Peripheral IV Care [RC] . DIRECTED 10/31/19 14:28 RT Aerosol Therapy [RC] ASDIRECTED 10/31/19 14:55 Azithromycin [Zithromax] 500 mg Sodium Chloride 0.9% [Normal Saline] 250 ml IV ONETIME cefTRIAXone [Rocephin] 1 gm IVPUSH ONETIME ONE 10/31/19 14:56 Patient Status [ADT] Routine Oxygen Therapy [RC] PRN VTE/DVT Education [RC] PER UNIT ROUTINE Vital Signs [RC] Q4H Resuscitation Status Routine Assessment:: Pneumonia Plan: Admit inpatient to [facility]
--- NOTE | 2019-10-31 14:45 | CR ---
[id number] RAD/RAD Chest PA And Lateral EXAM: RAD Chest PA And Lateral CLINICAL DATA: INCREASING OXYGEN REQUIREMENT DIFFICULTY BREATHING COMPARISON: CORRELATION IS MADE WITH THE CAT SCAN OF OCTOBER 01, 2014 FINDINGS: There is minimal pleural reaction at the right lung base The lungs are hyperaerated The cardiac silhouette is enlarged but stable IMPRESSION: SIGNIFICANT COPD Leif Pritchett MD 10/31/19 [id number] Thank you for allowing us to participate in the care of your patient.
[2019-10-31 14:47] LABS: ANION GAP 13.2 mmol/L (5-15); CHLORIDE,CL 98 mmol/L (98-115); SODIUM,NA 137 mmol/L (136-145)
[2019-10-31] MEDS ORDERED: cefTRIAXone 1 GM Vial IVPUSH ONE (14:55)
[2019-10-31] MEDS ORDERED: Azithromycin 500 MG in Sodium Chloride 0.9% 250 ML IV ONE (14:55)
[2019-10-31] MEDS ORDERED: Sodium Chloride 0.9% 50 ML IV ONE (15:33)
[2019-10-31] MEDS ORDERED: Magnesium Oxide 500 MG Tab PO PRN (17:03)
[2019-10-31] MEDS ORDERED: traMADol 50 MG Tab PO PRN (17:03)
[2019-10-31] MEDS ORDERED: Furosemide 40 MG Tab PO PRN (17:03)
[2019-10-31] MEDS ORDERED: Potassium Chloride 20 MEQ in Premix Bag 1 BAG IV ONE (17:11)
[2019-10-31] MEDS: Potassium Bicarbonate 25 MEQ Tab.EFF PO SCH (17:58)
[2019-10-31] MEDS: predniSONE 20 MG Tab PO SCH (17:58)
[2019-10-31] MEDS ORDERED: Furosemide 40 MG/4 ML VIAL IVPUSH ONE (20:57)
[2019-10-31] MEDS: Apixaban 5 MG Tab PO SCH (21:23)
[2019-10-31] MEDS: Latanoprost 0.005% Ophth Soln 2.5 ML Bottle EYEBOTH SCH (21:25)
[2019-10-31] MEDS: Albuterol/Ipratropium 3.0-0.5 MG/3 ML Neb Soln NEB SCH (22:51)
[2019-11-01] MEDS: Albuterol/Ipratropium 3.0-0.5 MG/3 ML Neb Soln NEB SCH ×4 (05:43→22:26)
[2019-11-01 08:12] LABS: ANION GAP 13.8 mmol/L (5-15)
[2019-11-01] MEDS ORDERED: Losartan 25 MG Tab PO SCH (09:00)
[2019-11-01] MEDS ORDERED: Non-Formulary Medication 1 Each (Biotin [Biotin] 5 MG) PO SCH (09:00)
[2019-11-01] MEDS: predniSONE 20 MG Tab PO SCH ×2 (09:39→20:40)
[2019-11-01] MEDS: Cholecalciferol (Vitamin D3) 25 MCG Tab PO SCH (09:39)
[2019-11-01] MEDS: Furosemide 40 MG Tab PO SCH (09:39)
[2019-11-01] MEDS: Apixaban 5 MG Tab PO SCH ×2 (09:39→20:39)
[2019-11-01] MEDS: Metoprolol Succinate 25 MG Tab.ER PO SCH (09:41)
[2019-11-01] MEDS: Potassium Bicarbonate 25 MEQ Tab.EFF PO SCH (09:55)
--- NOTE | 2019-11-01 11:10 | HP ---
HISTORY OF PRESENT ILLNESS: This is an 83-year-old female patient who lives at home. She has a long history of smoking cigarettes. She states that she quit smoking about 3 years ago. She has a long history of COPD. She does use oxygen at home, usually at nighttime. She states over the weekend she started having a cough and some shortness of breath and she was requiring to wear her oxygen during the day. She became short of breath even with the oxygen on. She was coughing a lot. She decided to go to the emergency room. In the emergency room, she was found to have a white count slightly elevated at 11.8 and her oxygen saturations had dropped in the 80s. X-ray just showed advanced COPD. She was admitted at that time. Today, now the patient is sitting up, eating breakfast. She denies any chest pain. She says her cough is dry. She says she feels a lot better than yesterday. Her breathing is easier today. She is having no pain. PAST MEDICAL HISTORY: She does have a past medical history of cataract to her right eye, anxiety, atrial fibrillation requiring Eliquis treatment, history of CVA, hypertension, hyperlipidemia, left ventricle dysfunction, osteoporosis, vitamin D deficiency, hypertension, hypomagnesemia. MEDICATIONS: Medications that she takes at home. She takes tramadol 50 mg every 8 hours as needed, magnesium oxide 400 mg daily as needed, vitamin D3 at 2000 units daily, simvastatin 60 mg daily, Lasix 40 mg daily, metoprolol succinate 25 mg daily, losartan 25 mg daily, biotin 5 mg daily, Eliquis 2.5 mg twice a day. ALLERGIES: She is allergic to Coumadin. SOCIAL/PERSONAL HISTORY: The patient does live at home. She denies any alcohol or tobacco use at this time. She does use oxygen at home occasionally. The patient is retired. REVIEW OF SYSTEMS: CONSTITUTIONAL: No weight loss. No fever. No chills. No night sweats. Appetite is good. No fatigue. EYES: No recent visual changes. ENT: No sinus congestion or hoarseness. CARDIOVASCULAR: No chest pain or palpitations. RESPIRATORY: She does complain of cough. Her shortness of breath is improved, but she is still short of breath. She denies any chest pain. She denies any fevers, but she has been very diaphoretic and sweaty. She does state that her breathing is better than yesterday. GI: No vomiting, diarrhea or melena. : No dysuria or hematuria. MUSCULOSKELETAL: No new bone pain or joint swelling. INTEGUMENTARY: No rash or pruritus. NEUROLOGIC/PSYCHIATRIC: No recent headache or focal weakness. No depressive symptoms. ENDOCRINE: No heat or cold intolerances or polydipsia. HEMATOLOGIC/LYMPHATIC: No excessive bruising or lymph node swelling. ALLERGIC/IMMUNOLOGIC: No hives or recurrent infections. PHYSICAL EXAMINATION: GENERAL: This is a white female, in no acute distress. VITAL SIGNS: Her weight is 110 pounds. Temperature is 98.2, pulse is 75, blood pressure is 105/56, respiratory rate is 22, oxygen saturations are 94% on 2 L nasal cannula. HEENT: Head is normocephalic. EOMs are intact. Pupils are equal, round, reactive to light and accommodation. Bilateral tympanic membranes are intact. Nose is clear. No pharyngeal erythema noted. NECK: Supple. No JVD. Trachea is midline. LUNG SOUNDS: She does have some diffuse scattered wheezes throughout the lung watkins, but improved today. Diminished at bilateral bases. CARDIAC: Irregularly irregular consistent with atrial fibrillation. ABDOMINAL: Bowel sounds present x4. Nondistended, nontender. EXTREMITIES: Full range of motion. No joint effusions noted. NEUROLOGICAL: Grossly intact. DIAGNOSTIC: The patient's lab work that she had obtained in the emergency room. CBC showed a white count elevated at 11.8, hemoglobin 11.6. The patient's potassium was low at 3.2, magnesium was at 1.7. Brain natriuretic peptide was elevated at 432. Albumin low at 2.89. Lab work that was repeated today which is 11/01/2019, CBC shows white count within normal range at 8.99, hemoglobin 10.9, potassium has come up to 3.4. The patient's chest x-ray report that she had from the emergency room, the impression reads per Radiology significant COPD. IMPRESSION/PLAN: 1. Exacerbation of chronic obstructive pulmonary disease, possible early pneumonia. Plan: We are going to continue with oxygen 2 L nasal cannula to keep her sats greater than 90%. We will continue with DuoNeb every 6 hours. We did draw a procalcitonin which is pending at this time. The patient's white count was elevated at 11.8 upon admission. She was diaphoretic. We will continue on IV antibiotic therapy of Rocephin 1 g every 24 hours. Also Zithromax an IV, she got a 500 mg dose in the ER. We will give her 250 mg IV daily. We will also continue with steroid therapy of prednisone 20 mg twice a day at this time. The patient seems to be improving with this exacerbation. 2. Mild exacerbation of congestive heart failure, left ventricle dysfunction. Plan: The patient's brain natriuretic peptide was elevated in the emergency room at 432. She is on Lasix orally 40 mg daily. I did give her an additional dose of Lasix 20 mg IV yesterday. We will continue with accurate I's and O's and see how she does. We will monitor her fluid status. 3. History of atrial fibrillation. Plan: Continue with Eliquis 2.5 mg twice a day. 4. Hypertension. The patient's blood pressure was low during the night. I am going to hold patient's losartan and metoprolol at this time. 5. Hypokalemia. The patient's potassium was low in the emergency room at 3.2. She was given one time Effervescent 25 Meq of potassium. I am going to put her on potassium orally 10 mEq twice a day with meals. Keep an eye on her potassium level. 6. Hyperlipidemia. Plan: Continue with simvastatin 60 mg daily. 7. Pain. Plan: We will continue with tramadol 50 mg every 8 hours as needed for pain. OVERALL PLAN: The patient seems to be doing better. Her white count has come down to 8.9. She states that her breathing is better. We were able to keep her oxygen saturations above 90 with just 2 L nasal cannula. Possible discharge tomorrow. /[id number]/MODL MTDD
[2019-11-01] MEDS: cefTRIAXone 1 GM Vial IVPUSH SCH (16:53)
[2019-11-01] MEDS: Sodium Chloride 0.9% 10 ML Syringe FLUSH PRN (16:55)
[2019-11-01] MEDS: Potassium Chloride 10 MEQ Tab.ER PO SCH (17:58)
[2019-11-01] MEDS: Sodium Chloride 0.9% 50 ML IV SCH (17:59)
[2019-11-01] MEDS: Azithromycin 250 MG in Sodium Chloride 0.9% 250 ML IV SCH (17:59)
[2019-11-01] MEDS: Simvastatin 20 MG Tab PO SCH (20:38)
[2019-11-01] MEDS: Latanoprost 0.005% Ophth Soln 2.5 ML Bottle EYEBOTH SCH (20:43)
[2019-11-01] MEDS: Menthol 7.6 MG Sugar Free Lozenge PO PRN (22:30)
[2019-11-02] MEDS: Albuterol/Ipratropium 3.0-0.5 MG/3 ML Neb Soln NEB SCH ×4 (05:50→23:04)
[2019-11-02] MEDS: Potassium Chloride 10 MEQ Tab.ER PO SCH ×2 (08:24→17:32)
[2019-11-02] MEDS: Losartan 25 MG Tab PO SCH (08:24)
[2019-11-02] MEDS: Cholecalciferol (Vitamin D3) 25 MCG Tab PO SCH (08:24)
[2019-11-02] MEDS: Apixaban 5 MG Tab PO SCH ×2 (08:24→21:09)
[2019-11-02] MEDS: predniSONE 20 MG Tab PO SCH ×2 (08:25→21:09)
[2019-11-02] MEDS: Furosemide 40 MG Tab PO SCH (09:40)
--- NOTE | 2019-11-02 11:53 | PN ---
11/02/2019 PATIENT NAME: KAVIN TIDWELL BRIEF HISTORY: Kavin is a patient well known to me. She is 83. [place] She does have a long history of tobacco abuse with COPD. She has had hospitalizations here in the past for flash pulmonary edema, atrial fibrillation. She was admitted when she started having increasing shortness of breath above her baseline along with cough. She became short of breath even with oxygen on. PERTINENT EMERGENCY DEPARTMENT FINDINGS: Chest x-ray; advanced COPD, O2 sats low 80s. White count approximately 12,000 with positive neutrophilia. Mild hypokalemia. BNP 432. Procalcitonin 0.11. REVIEW OF SYSTEMS: GENERAL: Mild cough, sputum clearing up, mild shortness of breath, sitting up in chair, in no respiratory distress. Does have some edema in her hands, tight rings. GI: No vomiting. : No dysuria. PHYSICAL EXAMINATION: GENERAL APPEARANCE: No acute distress, sitting up in bed. VITAL SIGNS: Weight 114, up 4 pounds from yesterday. Blood pressure 139/76, heart rate 72, afebrile, temperature 98.5. HEENT: Pupils equal, round, and reactive to light. NECK: No JVD. PULMONARY: Slight crackles noticed in the left lung base. CARDIAC: Irregular rhythm, however, controlled variable rhythm. ABDOMEN: Bowel sounds are positive x4. Nondistended. LABORATORY DATA: White count down to 8.9, platelets 215, neutrophilia 74.8%, potassium corrected at 3.4, sodium 141, BUN 20, and creatinine 0.9. Procalcitonin 0.11. IMPRESSION: 1. Chronic obstructive pulmonary disease exacerbation. 2. Congestive heart failure with preserved ejection fraction. Mild exacerbation. 3. Atrial fibrillation. 4. Hypertension. 5. Hypokalemia, resolved. 6. Hyperlipidemia. PLAN: Due to her mild exacerbation of her COPD with likely bacterial infections slightly suspect, we will continue on dual antibiotics. Procalcitonin is equivocal 11.1, increase Lasix today. Monitor her very carefully as the patient does have a history of flash pulmonary edema requiring intubation. I would like to see the patient a little more on the dry side before anticipating discharging home. The patient is at high risk. We will consult with respiratory therapy. The patient is oxygen dependent at home. We have to ensure that she wears this as just as prescribed. /[id number]/MODL ANTONIO
[2019-11-02] MEDS ORDERED: Furosemide 40 MG/4 ML VIAL IVPUSH ONE (14:00)
[2019-11-02] MEDS ORDERED: Potassium Bicarbonate 25 MEQ Tab.EFF PO ONE (17:00)
[2019-11-02] MEDS: cefTRIAXone 1 GM Vial IVPUSH SCH (17:34)
[2019-11-02] MEDS: Sodium Chloride 0.9% 50 ML IV SCH (17:36)
[2019-11-02] MEDS: Azithromycin 250 MG in Sodium Chloride 0.9% 250 ML IV SCH (18:08)
[2019-11-02] MEDS: Simvastatin 20 MG Tab PO SCH (21:10)
[2019-11-02] MEDS: Latanoprost 0.005% Ophth Soln 2.5 ML Bottle EYEBOTH SCH (21:10)
[2019-11-03] MEDS: Melatonin 3 MG Tab PO PRN ×2 (01:03→23:51)
[2019-11-03] MEDS: Albuterol/Ipratropium 3.0-0.5 MG/3 ML Neb Soln NEB SCH ×4 (05:22→23:07)
[2019-11-03] MEDS: predniSONE 20 MG Tab PO SCH ×2 (09:23→20:50)
[2019-11-03] MEDS: Potassium Chloride 10 MEQ Tab.ER PO SCH ×2 (09:23→17:57)
[2019-11-03] MEDS: Cholecalciferol (Vitamin D3) 25 MCG Tab PO SCH (09:24)
[2019-11-03] MEDS: Apixaban 5 MG Tab PO SCH ×2 (09:24→20:49)
[2019-11-03] MEDS: Furosemide 40 MG Tab PO SCH (09:30)
[2019-11-03] MEDS: Losartan 25 MG Tab PO SCH (09:32)
[2019-11-03] MEDS: Metoprolol Succinate 25 MG Tab.ER PO SCH (09:32)
[2019-11-03 09:50] LABS: ANION GAP 12.7 mmol/L (5-15); CHLORIDE,CL 100 mmol/L (98-115); SODIUM,NA 139 mmol/L (136-145)
[2019-11-03] MEDS ORDERED: Furosemide 40 MG/4 ML VIAL IVPUSH ONE (10:02)
[2019-11-03] MEDS: Sodium Chloride 0.9% 10 ML Syringe FLUSH PRN (10:30)
--- NOTE | 2019-11-03 14:51 | PN ---
11/03/2019 PATIENT NAME: KAVIN TIDWELL CHIEF COMPLAINT: The patient is feeling much better today, diuresed, negative output of 1100 mL, less short of breath. However, her rings and jewelry on her hands are still slightly edematous. The patient continued with dual antibiotics. No fevers. Slept fairly well last night. BRIEF HISTORY: The patient with a long history of tobacco use. She does have a COPD history. She had been hospitalized here in the past for flash pulmonary edema and atrial fibrillation. She started having some increased shortness of breath above her baseline along with ongoing cough with some shortness of breath. She was admitted due to pneumonia and some mild COPD exacerbation. PERTINENT EMERGENCY DEPARTMENT FINDINGS: Chest x-ray does show advanced COPD findings. She had a white count of approximately 12,000 with positive neutrophilia. She did have some mild hypokalemia with a BNP of 432. Procalcitonin was equivocal at 0.11. REVIEW OF SYSTEMS: PULMONARY: No longer shortness of breath. No sputum production. GASTROINTESTINAL: No vomiting. No abdominal pain. GENITOURINARY: No dysuria. CV: No chest palpitations or flutter. PHYSICAL EXAMINATION: VITAL SIGNS: Temperature 97.4; weight is 114, somewhat flat; blood pressure 138/76, heart rate 86. NECK: No JVD. PULMONARY: Very minimal interstitial fibrotic-type crackles, lower bases, mainly on her right side. CARDIAC: Irregular rhythm, controlled variable rhythm. No S3. ABDOMEN: Bowel sounds are positive. Slight faint soft aortic murmur, right side of umbilical. No thrill palpable. LABORATORY DATA: White count is 8.99. Sodium 139, potassium 4.1, BUN of 26 with a corresponding creatinine of 0.76 with a glucose of 201, calcium 8.9. IMPRESSION: 1. Chronic obstructive pulmonary disease exacerbation, mild. 2. Congestive heart failure with preserved ejection fraction, mild and improving. 3. Atrial fibrillation with CVR. 4. Hypertension. 5. Hypokalemia, which is resolved. 6. Hyperlipidemia. DISPOSITION AND OVERALL PLAN: Continue one day further inpatient stay with ongoing diuresing. We will give her 40 mg IV Lasix today. Monitor her output. She has improved. Due to her mild exacerbation of chronic obstructive pulmonary disease, likely suggest bacterial infection, we will continue with dual antibiotics; however, we will change to oral azithromycin. Procalcitonin is equivocal at 11.1. Due to her history of flash pulmonary edema, I would like to see her slightly more of her dry weight before sending her home as she is high risk of readmission due to flash pulmonary edema. DISCHARGE PLANNING AND FOLLOWUP: The patient will likely be discharged tomorrow. Close followup in the clinic outpatient. Long discussion with the patient regarding weighing her at her home scale. She will bring her scale either in today or to the clinic for calibration and re-education. She will go home on p.o. Lasix with self-titrating schedule according to her weight. Discussed with her regarding minimal oxygen daily wear of 16 hours for better improved outcomes. /[id number]/MODL
[2019-11-03] MEDS: cefTRIAXone 1 GM Vial IVPUSH SCH (17:49)
[2019-11-03] MEDS ORDERED: Azithromycin 250 MG Tab PO SCH (18:00)
[2019-11-03] MEDS: Simvastatin 20 MG Tab PO SCH (20:50)
[2019-11-03] MEDS: Latanoprost 0.005% Ophth Soln 2.5 ML Bottle EYEBOTH SCH (20:51)
[2019-11-03] MEDS: Menthol 7.6 MG Sugar Free Lozenge PO PRN (23:51)
[2019-11-04] MEDS: Albuterol/Ipratropium 3.0-0.5 MG/3 ML Neb Soln NEB SCH ×2 (05:26→12:47)
[2019-11-04] MEDS: Cholecalciferol (Vitamin D3) 25 MCG Tab PO SCH ×2 (07:45→10:41)
[2019-11-04] MEDS: Metoprolol Succinate 25 MG Tab.ER PO SCH ×2 (07:46→10:41)
[2019-11-04] MEDS: predniSONE 20 MG Tab PO SCH ×2 (07:46→10:41)
[2019-11-04] MEDS: Losartan 25 MG Tab PO SCH ×2 (07:46→10:40)
[2019-11-04] MEDS: Furosemide 40 MG Tab PO SCH ×2 (07:47→10:40)
[2019-11-04] MEDS: Potassium Chloride 10 MEQ Tab.ER PO SCH (07:47)
[2019-11-04] MEDS: Apixaban 5 MG Tab PO SCH ×2 (07:47→10:40)
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
[2019-11-04 13:03] VITALS: PULSE 70
[2019-11-04 13:04] VITALS: BP 126/75
== END 2019-11-04 14:13 | disposition home or self-care (01) | DRG 193 ==
LOC: KA.ED 13:40 → KA.MS 14:56
PROVIDERS: ADMIT Physician Assistant Surgical; ATTEND Physician Assistant
DX: J18.9 Pneumonia, unspecified organism (principal); I50.33 Acute on chronic diastolic (congestive) heart failure; R09.02 Hypoxemia; J44.1 Chronic obstructive pulmonary disease with (acute) exacerbation; J44.0 Chronic obstructive pulmonary disease with (acute) lower respiratory infection; E78.00 Pure hypercholesterolemia, unspecified; I10 Essential (primary) hypertension; I11.0 Hypertensive heart disease with heart failure; Z96.659 Presence of unspecified artificial knee joint; F41.9 Anxiety disorder, unspecified; I69.392 Facial weakness following cerebral infarction; Z85.038 Personal history of other malignant neoplasm of large intestine; I48.91 Unspecified atrial fibrillation; Z90.49 Acquired absence of other specified parts of digestive tract; E78.5 Hyperlipidemia, unspecified; M81.0 Age-related osteoporosis without current pathological fracture; E55.9 Vitamin D deficiency, unspecified; E87.6 Hypokalemia; H54.7 Unspecified visual loss; H40.9 Unspecified glaucoma; M54.9 Dorsalgia, unspecified; G89.29 Other chronic pain; Z98.41 Cataract extraction status, right eye; Z98.51 Tubal ligation status; Z87.891 Personal history of nicotine dependence; Z86.73 Personal history of transient ischemic attack (TIA), and cerebral infarction without residual deficits; Z98.890 Other specified postprocedural states; Z79.01 Long term (current) use of anticoagulants; Z79.899 Other long term (current) drug therapy; Z88.8 Allergy status to other drugs, medicaments and biological substances; Z99.81 Dependence on supplemental oxygen
CPT/HCPCS: 36415; 71046; 80048; 80053; 82962; 83735; 83880; 84145; 85025; 87804; 94640; 99284; 99285-25; A9270-GY; J0456; J0696; J1940; J7050; J7620-GY

== ENCOUNTER 2020-06-02 07:16 | Emergency (ER) | payer MEDICARE, OTHER ==
[2020-06-02] MEDS ORDERED: Ketorolac 30 MG/ML SDV IM ONE (07:58)
[2020-06-02] MEDS ORDERED: methylPREDNISolone Sodium Succinate 125 MG/2 ML SDV IM ONE (07:59)
--- NOTE | 2020-06-02 08:00 | EDM.PDOC ---
ED HPI GENERAL MEDICAL PROBLEM - General Chief Complaint: Back Pain or Injury Stated Complaint: MEDICATION REFILL/UTI Time Seen by Provider: 06/02/20 07:40 Source of Information: Reports: Patient History Limitations: Reports: No Limitations - History of Present Illness INITIAL COMMENTS - FREE TEXT/NARRATIVE: 84 YO WF PRESENTS TO ER COMPLAINING OF PAIN TO HER LEFT LOWER BACK. PT REPORTS LONGSTANDING HISTORY OF SI JOINT PAIN. PT REPORTS SHE TAKES TRAMADOL FOR HER CHRONIC BACK PAIN BUT STATES SHE RAN OUT 2 DAYS AGO AND IS WAITING FOR THE DOCTOR TO CALL HER IN A REFILL. PT DENIES ANY INJURY OR FALL. PT DENIES LOWER EXTREMITY PAIN, WEAKNESS OR DECREASED SENSATION. PT DENIES BOWEL OR BLADDER DYSFUNCTION. PT ABLE TO AMBULATE BUT STATES IT IS WORSE WITH SITTING. PT REPORTS SHE IS HAVING SOME URINARY FREQUENCY WITHOUT URGENCY OR DYSURIA. PT DENIES ANY FEVER/CHILLS OR RECENT ILLNESSES Duration: Chronic, Getting Worse Location: Reports: Back Quality: Reports: Ache Severity: Moderate Improves with: Reports: Rest Worsens with: Reports: Other (SITTING), Movement Associated Symptoms: Reports: No Other Symptoms Left Back Pain Score (Numeric/FACES): 5 - Related Data Allergies Allergy/AdvReac Type Severity Reaction Status Date / Time ciprofloxacin Allergy Cannot Verified 06/02/20 07:43 Remember warfarin [From Coumadin] Allergy Cannot Verified 06/02/20 07:18 Remember Home Meds: Home Meds Apixaban [Eliquis] 5 mg PO DAILY 06/02/20 [History] Biotin 5 mg PO DAILY 06/02/20 [History] Cholecalciferol (Vitamin D3) [Vitamin D3] 1,000 unit PO DAILY 06/02/20 [History] Furosemide [Lasix] 40 mg PO DAILY 06/02/20 [History] Latanoprost [Xalatan] 2.5 ml OP BEDTIME 06/02/20 [History] Losartan [Cozaar] 25 mg PO DAILY 06/02/20 [History] Magnesium Oxide 400 mg PO DAILY 06/02/20 [History] Metoprolol Succinate 25 mg PO DAILY 06/02/20 [History] Potassium Chloride 20 meq PO DAILY 06/02/20 [History] methocarbamoL [Robaxin] 500 mg PO TID PRN #15 tab 06/02/20 [Rx] traMADol [Ultram] 50 mg PO Q6H PRN #15 tab 06/02/20 [Rx] Past Medical History Cardiovascular History: Reports: Afib Respiratory History: Reports: Other (See Below) Other Respiratory History: lung nodule - Past Surgical History GI Surgical History: Reports: Other (See Below) Other GI Surgeries/Procedures: lap colon resection Himicolectomy Female Surgical History: Reports: Oophorectomy Musculoskeletal Surgical History: Reports: Knee Replacement Social & Family History - Tobacco Use Smoking Status *Q: Never Smoker - Recreational Drug Use Recreational Drug Use: No ED ROS GENERAL - Review of Systems Review Of Systems: See Below Constitutional: Reports: No Symptoms HEENT: Reports: No Symptoms Respiratory: Reports: No Symptoms Cardiovascular: Reports: No Symptoms GI/Abdominal: Reports: No Symptoms : Reports: Frequency Musculoskeletal: Reports: Back Pain Skin: Reports: No Symptoms Neurological: Reports: No Symptoms Psychiatric: Reports: No Symptoms Hematologic/Lymphatic: Reports: No Symptoms ED EXAM,LOWER BACK PAIN/INJURY - Physical Exam Exam: See Below Exam Limited By: No Limitations General Appearance: Alert, WD/WN, No Apparent Distress Head: Atraumatic, Normocephalic Neck: Normal Inspection, Supple, Non-Tender, Full Range of Motion Respiratory/Chest: No Respiratory Distress, Lungs Clear, Normal Breath Sounds, No Accessory Muscle Use, Chest Non-Tender Cardiovascular: Normal Peripheral Pulses, Regular Rate, Rhythm, No Edema, No Gallop, No JVD, No Murmur, No Rub GI/Abdominal: Normal Bowel Sounds, Soft, Non-Tender, No Organomegaly, No Distention, No Abnormal Bruit, No Mass Back Exam: Full Range of Motion, Muscle Spasm, Paraspinal Tenderness Extremities: Normal Inspection, Normal Range of Motion, Non-Tender, No Pedal Edema, Normal Capillary Refill Neurological: Alert, Normal Mood/Affect, Normal Dorsiflexion, CN II-XII Intact, Normal Plantar Flexion, Normal Gait, Normal Reflexes, No Motor/Sensory Deficits, Oriented x 3 Psychiatric: Normal Affect, Normal Mood Skin Exam: Warm, Dry, Intact, Normal Color, No Rash Lymphatic: No Adenopathy Course - Vital Signs Last Recorded V/S: Last Vital Signs Temp 36.7 C 06/02/20 07:21 Pulse 61 06/02/20 07:21 Resp 16 06/02/20 07:21 BP 161/86 H 06/02/20 07:21 Pulse Ox 95 06/02/20 07:21 - Orders/Labs/Meds Labs: Laboratory Tests 06/02/20 Range/Units 07:33 Specimen Type Urinvoid Urine Color Light yellow (YELLOW) Urine Appearance Clear (CLEAR) Urine pH 7.0 (5.0-9.0) Ur Specific [place] 1.020 (1.005-1.030) Urine Protein Negative (NEGATIVE) mg/dL Urine Glucose (UA) Negative (NEGATIVE) mg/dL Urine Ketones Negative (NEGATIVE) mg/dL Urine Occult Blood Negative (NEGATIVE) Urine Nitrite Negative (NEGATIVE) Urine Bilirubin Negative (NEGATIVE) Urine Urobilinogen 0.2 (0.2-1.0) E.U./dL Ur Leukocyte Esterase Negative (NEGATIVE) Urine RBC 0-5 (0-5) /HPF Urine WBC 0-5 (0-5) /HPF Ur Epithelial Cells Moderate H /LPF Urine Bacteria Not seen (NONE TO FEW) /HPF Meds: Medications Discontinued Medications Generic Name Dose Route Start Last Admin Trade Name Freq PRN Reason Stop Dose Admin Ketorolac Tromethamine 30 mg 06/02/20 07:58 06/02/20 08:03 Toradol IM 06/02/20 07:59 30 mg ONETIME ONE Administration Methylprednisolone Sodium Succinate 125 mg 06/02/20 07:59 06/02/20 08:06 Solu-Medrol IM 06/02/20 08:00 125 mg ONETIME ONE Administration Departure - Departure Time of Disposition: 08:13 Disposition: Home, Self-Care 01 Condition: Good Clinical Impression: Chronic low back pain Qualifiers: Back pain laterality: left Sciatica presence: without sciatica Qualified Code(s): M54.5 - Low back pain - Discharge Information Prescriptions: methocarbamoL [Robaxin] 500 mg PO TID PRN #15 tab PRN Reason: Muscle Spasm traMADol [Ultram] 50 mg PO Q6H PRN #15 tab PRN Reason: Pain Instructions: Sacroiliac Joint Dysfunction, Chronic Back Pain Referrals: Hilda Simpson, TECHNICIAN [employer] [Nurse Practitioner] - Forms: ED Department Discharge Additional Instructions: 1. DISCHARGE HOME 2. ULTRAM 50MG EVERY 4-6 HOURS NEEDED #15 3. ROBAXIN 500MG #15 ONE EVERY 8 HOURS NEEDED 4. MOTRIN 600MG EVERY 6 HOURS NEEDED 5. FOLLOW UP WITH PCP FOR FURTHER EVALUATION AND TREATMENT 6. RETURN TO ER FOR WORSENING SYMPTOMS Sepsis Event Note (ED) - Evaluation Sepsis Screening Result: No Definite Risk - Focused Exam Vital Signs: Vital Signs Temp Pulse Resp BP Pulse Ox 06/02/20 07:21 36.7 C 61 16 161/86 H 95 - Assessment/Plan Assessment:: 1. CHRONIC LOW BACK PAIN Plan: 1. DISCHARGE HOME 2. ULTRAM 50MG EVERY 4-6 HOURS NEEDED #15 3. ROBAXIN 500MG #15 ONE EVERY 8 HOURS NEEDED 4. MOTRIN 600MG EVERY 6 HOURS NEEDED 5. FOLLOW UP WITH PCP FOR FURTHER EVALUATION AND TREATMENT 6. RETURN TO ER FOR WORSENING SYMPTOMS
[2020-06-02 08:45] VITALS: BP 152/68; PULSE 71
== END 2020-06-02 08:22 | disposition home or self-care (01) ==
LOC: MERGE 07:16 → KA.ED 07:16
DX: M54.5 Low back pain (principal); I48.91 Unspecified atrial fibrillation; Z88.1 Allergy status to other antibiotic agents; Z88.8 Allergy status to other drugs, medicaments and biological substances; Z79.01 Long term (current) use of anticoagulants; Z79.899 Other long term (current) drug therapy
CPT/HCPCS: 81001; 96372; 99283; J1885; J2930

== ENCOUNTER 2022-07-04 11:49 | Inpatient (IN) | payer MEDICARE, OTHER ==
[2022-07-04] MEDS ORDERED: Furosemide 40 MG/4 ML VIAL IV ONE (12:00)
[2022-07-04] MEDS ORDERED: Apixaban 5 MG Tab PO ONE (17:34)
[2022-07-04] MEDS ORDERED: Latanoprost 0.005% Ophth Soln 2.5 ML Bottle EYEBOTH ONE (20:30)
[2022-07-05] MEDS ORDERED: Losartan 25 MG Tab PO ONE (08:30)
[2022-07-05] MEDS ORDERED: Allopurinol 100 MG Tab PO ONE (08:30)
[2022-07-05] MEDS ORDERED: Metoprolol Succinate 25 MG Tab.ER PO ONE (08:30)
[2022-07-05] MEDS ORDERED: Albuterol 8 GM Inhaler INH ONE (10:15)
[2022-07-05] MEDS ORDERED: Spironolactone 25 MG Tab PO ONE (10:30)
[2022-07-05] MEDS ORDERED: Furosemide 40 MG/4 ML VIAL IV ONE (14:55)
[2022-07-07] MEDS ORDERED: Famotidine 20 MG Tab PO ONE (11:25)
[2022-07-09] MEDS ORDERED: Furosemide 40 MG Tab PO ONE (12:58)
[2022-07-21 11:34] LABS: ANION GAP 6.1 mmol/L (5-15); CHLORIDE,CL 99 mmol/L (98-115); SODIUM,NA 139 mmol/L (136-145)
[2022-07-21 11:35] LABS: ESTIMATED GFR 70 mL/min (>=60)
[2022-07-22 09:18] LABS: ANION GAP 0.7 mmol/L (5-15); CHLORIDE,CL 100 mmol/L (98-115); ESTIMATED GFR 63 mL/min (>=60); SODIUM,NA 137 mmol/L (136-145)
[2022-07-22 10:35] LABS: CHLORIDE,CL 101 mmol/L (98-115); SODIUM,NA 140 mmol/L (136-145)
[2022-07-22 10:36] LABS: ANION GAP 4.9 mmol/L (5-15); ESTIMATED GFR 68 mL/min (>=60)
[2022-07-22 11:21] LABS: ANION GAP 2.7 mmol/L (5-15); CHLORIDE,CL 102 mmol/L (98-115); SODIUM,NA 139 mmol/L (136-145)
[2022-07-22 11:22] LABS: ESTIMATED GFR 72 mL/min (>=60)
[2022-07-22 14:07] LABS: ANION GAP 1.7 mmol/L (5-15); CHLORIDE,CL 103 mmol/L (98-115); ESTIMATED GFR 78 mL/min (>=60); SODIUM,NA 139 mmol/L (136-145)
== END 2022-07-09 10:00 | disposition home or self-care (01) | DRG 282 ==
LOC: KA.IVTHER 11:49 → KA.ZCENSUS 13:30
PROVIDERS: ADMIT Nurse Practitioner Family; ATTEND Nurse Practitioner Family
DX: I50.33 Acute on chronic diastolic (congestive) heart failure (principal); I21.A1 Myocardial infarction type 2; I48.0 Paroxysmal atrial fibrillation; E78.5 Hyperlipidemia, unspecified; J44.9 Chronic obstructive pulmonary disease, unspecified; R09.02 Hypoxemia; Z88.8 Allergy status to other drugs, medicaments and biological substances; Z88.1 Allergy status to other antibiotic agents; Z79.01 Long term (current) use of anticoagulants
CPT/HCPCS: 36415; 71046; 80048; 83880; 84484; 85025; 93005; 94640; A9270-GY; J1940

== ENCOUNTER 2022-07-09 10:00 | Inpatient (IN) | payer MEDICARE, OTHER ==
[2022-07-09] MEDS ORDERED: Melatonin 3 MG Tab PO PRN (14:53)
[2022-07-09] MEDS ORDERED: Albuterol 8 GM Inhaler INH PRN (14:54)
[2022-07-09] MEDS: Apixaban 5 MG Tab PO SCH (17:57)
[2022-07-09] MEDS: Latanoprost 0.005% Ophth Soln 2.5 ML Bottle EYEBOTH SCH (21:45)
[2022-07-10] MEDS: Apixaban 5 MG Tab PO SCH ×2 (08:20→18:29)
[2022-07-10] MEDS: Furosemide 40 MG Tab PO SCH (08:21)
[2022-07-10] MEDS: Losartan 25 MG Tab PO SCH (08:21)
[2022-07-10] MEDS: Metoprolol Succinate 25 MG Tab.ER PO SCH (08:21)
[2022-07-10] MEDS: Spironolactone 25 MG Tab PO SCH (08:21)
[2022-07-10] MEDS: Famotidine 20 MG Tab PO SCH (08:22)
[2022-07-10] MEDS: Aspirin 81 MG Tab.EC PO SCH (08:22)
[2022-07-10] MEDS: Allopurinol 100 MG Tab PO SCH (08:22)
[2022-07-10] MEDS ORDERED: Albuterol 8 GM Inhaler INH PRN (13:03)
[2022-07-10] MEDS ORDERED: traMADol 50 MG Tab PO PRN (13:03)
[2022-07-10] MEDS ORDERED: Melatonin 3 MG Tab PO PRN (13:03)
[2022-07-10] MEDS ORDERED: Aspirin 81 MG Tab.EC PO SCH (13:15)
[2022-07-10] MEDS ORDERED: Losartan 25 MG Tab PO SCH (13:15)
[2022-07-10] MEDS ORDERED: Furosemide 40 MG Tab PO SCH (13:15)
[2022-07-10] MEDS ORDERED: Metoprolol Succinate 25 MG Tab.ER PO SCH (13:15)
[2022-07-10] MEDS ORDERED: Apixaban 5 MG Tab PO SCH (21:00)
[2022-07-10] MEDS ORDERED: Latanoprost 0.005% Ophth Soln 2.5 ML Bottle EYEBOTH SCH (21:00)
[2022-07-10] MEDS: Latanoprost 0.005% Ophth Soln 2.5 ML Bottle EYEBOTH SCH (21:03)
[2022-07-11] MEDS ORDERED: Allopurinol 100 MG Tab PO SCH (09:00)
[2022-07-11] MEDS ORDERED: Cholecalciferol (Vitamin D3) 25 MCG Tab PO SCH (09:00)
[2022-07-11] MEDS ORDERED: Famotidine 20 MG Tab PO SCH (09:00)
[2022-07-11] MEDS ORDERED: Spironolactone 25 MG Tab PO SCH (09:00)
[2022-07-11] MEDS: Apixaban 5 MG Tab PO SCH ×2 (09:02→17:54)
[2022-07-11] MEDS: Cholecalciferol (Vitamin D3) 25 MCG Tab PO SCH (09:02)
[2022-07-11] MEDS: Aspirin 81 MG Tab.EC PO SCH (09:03)
[2022-07-11] MEDS: Famotidine 20 MG Tab PO SCH (09:03)
[2022-07-11] MEDS: Losartan 25 MG Tab PO SCH (09:03)
[2022-07-11] MEDS: Allopurinol 100 MG Tab PO SCH (09:03)
[2022-07-11] MEDS: Metoprolol Succinate 25 MG Tab.ER PO SCH (09:03)
[2022-07-11] MEDS: Spironolactone 25 MG Tab PO SCH (09:04)
[2022-07-11] MEDS: Furosemide 40 MG Tab PO SCH (09:04)
[2022-07-11] MEDS: Latanoprost 0.005% Ophth Soln 2.5 ML Bottle EYEBOTH SCH (20:28)
[2022-07-12] MEDS: Allopurinol 100 MG Tab PO SCH (09:52)
[2022-07-12] MEDS: Apixaban 5 MG Tab PO SCH (09:52)
[2022-07-12] MEDS: Furosemide 40 MG Tab PO SCH (09:53)
[2022-07-12] MEDS: Spironolactone 25 MG Tab PO SCH (09:53)
[2022-07-12] MEDS: Losartan 25 MG Tab PO SCH (09:53)
[2022-07-12] MEDS: Aspirin 81 MG Tab.EC PO SCH (09:53)
[2022-07-12] MEDS: Metoprolol Succinate 25 MG Tab.ER PO SCH (09:53)
[2022-07-12] MEDS: Cholecalciferol (Vitamin D3) 25 MCG Tab PO SCH (09:54)
[2022-07-12] MEDS: Famotidine 20 MG Tab PO SCH (09:54)
[2022-07-12 09:55] VITALS: BP 131/59; PULSE 65
== END 2022-07-12 13:10 | disposition home or self-care (01) | DRG 293 ==
LOC: KA.MS 10:00
PROVIDERS: ADMIT Nurse Practitioner Family; ATTEND Nurse Practitioner Family
DX: I50.9 Heart failure, unspecified (principal); J44.9 Chronic obstructive pulmonary disease, unspecified; R09.02 Hypoxemia; I48.0 Paroxysmal atrial fibrillation; E78.5 Hyperlipidemia, unspecified; Z88.1 Allergy status to other antibiotic agents; Z88.8 Allergy status to other drugs, medicaments and biological substances; Z79.01 Long term (current) use of anticoagulants
CPT/HCPCS: 93306; 97110-GP; A9270-GY

== ENCOUNTER 2024-07-27 08:21 | Day surgery (SDC) | payer MEDICARE, OTHER ==
[2024-07-27] MEDS ORDERED: Sodium Chloride 0.9% 10 ML Syringe FLUSH PRN (08:45)
[2024-07-27] MEDS: Lactated Ringers 1,000 ML IV SCH (10:00)
[2024-07-27] MEDS ORDERED: Propofol 200 MG/20 ML SDV ONE (10:10)
[2024-07-27] MEDS ORDERED: Midazolam 1 MG/ML 2 ML SDV ONE (10:10)
[2024-07-27 14:33] VITALS: BP 112/61; PULSE 62
== END 2024-07-27 12:01 | disposition home or self-care (01) ==
LOC: KA.SDS 08:21
PROVIDERS: ATTEND Surgery
DX: Z12.11 Encounter for screening for malignant neoplasm of colon (principal); D12.3 Benign neoplasm of transverse colon; K57.30 Diverticulosis of large intestine without perforation or abscess without bleeding; Z85.038 Personal history of other malignant neoplasm of large intestine; I11.0 Hypertensive heart disease with heart failure; I50.20 Unspecified systolic (congestive) heart failure; E78.00 Pure hypercholesterolemia, unspecified; I48.91 Unspecified atrial fibrillation; K21.9 Gastro-esophageal reflux disease without esophagitis; Z79.82 Long term (current) use of aspirin; Z79.01 Long term (current) use of anticoagulants; Z79.899 Other long term (current) drug therapy; Z88.8 Allergy status to other drugs, medicaments and biological substances
CPT/HCPCS: 00811; J2250; J2704; J3490; J7120

== ENCOUNTER 2025-04-01 11:39 | Emergency (ER) | payer MEDICARE, OTHER ==
[2025-04-01 12:22] LABS: APPEARANCE,URINE CLOUDY (CLEAR); GLUCOSE,URINE 250 mg/dL (NEGATIVE); OCCULT BLOOD,URINE SMALL (NEGATIVE)
[2025-04-01 12:28] LABS: EPITHELIAL CELLS,URINE RARE /LPF
[2025-04-01] MEDS: LORazepam 2 MG/ML SDV IVPUSH ONE (12:40)
[2025-04-01] MEDS: methylPREDNISolone Sodium Succinate 125 MG/2 ML SDV IVPUSH ONE (12:42)
[2025-04-01] MEDS: Ketorolac 30 MG/ML SDV IVPUSH ONE (12:42)
[2025-04-01 13:24] VITALS: BP 147/68; PULSE 55
== END 2025-04-01 13:25 | disposition home or self-care (01) ==
LOC: KA.ED 11:39
DX: N30.00 Acute cystitis without hematuria (principal); M54.50 Low back pain, unspecified; G89.29 Other chronic pain; I11.0 Hypertensive heart disease with heart failure; I50.9 Heart failure, unspecified; E78.00 Pure hypercholesterolemia, unspecified; Z86.73 Personal history of transient ischemic attack (TIA), and cerebral infarction without residual deficits; Z79.01 Long term (current) use of anticoagulants; Z79.899 Other long term (current) drug therapy; Z88.1 Allergy status to other antibiotic agents; Z88.8 Allergy status to other drugs, medicaments and biological substances
CPT/HCPCS: 81001; 87086; 87186; 96374; 96375; 99283-25; A9270-GY; J1885; J2060; J2919

== ENCOUNTER 2025-04-02 16:51 | Inpatient (IN) | payer MEDICARE, OTHER ==
[2025-04-02] MEDS ORDERED: Sodium Chloride 0.9% 10 ML Syringe FLUSH PRN (16:54)
[2025-04-02 17:12] LABS: BASOPHILS ABSOLUTE AUTO 0.00 10^3/uL (0.00-0.10); BASOPHILS PERCENT AUTO 0.0 % (0.0-1.0); EOSINOPHILS ABSOLUTE AUTO 0.00 10^3/uL (0.10-0.30); EOSINOPHILS PERCENT AUTO 0.0 % (1.0-3.0); IMMATURE GRAN ABSOLUTE AUTO 0.03 10^3/uL (0.00-0.04); IMMATURE GRAN PERCENT AUTO 0.3 % (0.0-0.4); LYMPHOCYTES ABSOLUTE AUTO 0.51 10^3/uL (1.00-4.00); LYMPHOCYTES PERCENT AUTO 4.5 % (20.0-40.0); MEAN PLATELET VOLUME 10.0 fL (7.4-10.4); MONOCYTES ABSOLUTE AUTO 0.17 10^3/uL (0.10-0.80); MONOCYTES PERCENT AUTO 1.5 % (2.0-8.0); NEUTROPHILS ABSOLUTE AUTO 10.58 10^3/uL (2.50-7.00); NEUTROPHILS PERCENT AUTO 93.7 % (50.0-70.0); PLATELET COUNT,PLT 169 10^3/uL (150-400); RED BLOOD CELL COUNT 4.72 10^6/uL (3.80-5.50); RED CELL DISTRIBUTION WIDTH 14.7 % (11.5-14.5); WHITE BLOOD CELL COUNT,WBC 11.29 10^3/uL (5.00-10.00)
[2025-04-02 17:41] LABS: ALANINE AMINOTRANSFERASE,ALT 20.0 U/L (14-63); ASPARTATE AMNIOTRANSFERASE,AST 22.0 U/L (15-37); BILIRUBIN TOTAL 0.5 mg/dL (0.2-1.0); BLOOD UREA NITROGEN,BUN 41.0 mg/dL (7-18); CARBON DIOXIDE,CO2 32.6 mmol/L (21.0-32.0); CHLORIDE,CL 102.0 mmol/L (98-107); CREATINE KINASE,CK 198.0 U/L (26-276); CREATININE 1.55 mg/dL (0.51-1.17); EST CRCL DRUG DOSING (CG) 16.51 mL/min; ESTIMATED GFR 32.0 mL/min (>=60); GLUCOSE RANDOM 144.0 mg/dL (70-140); POTASSIUM,K 3.5 mmol/L (3.5-5.1); PROTEIN TOTAL,TP 6.6 g/dL (6.4-8.2); SODIUM,NA 143.0 mmol/L (136-145)
[2025-04-02] MEDS ORDERED: Non-Formulary Medication 1 Each (Ipratropium Bromide [Ipratropium Bromide] 30 ML Spray) NASBOTH PRN (20:38)
[2025-04-02] MEDS: Lactated Ringers 1,000 ML IV SCH (20:55)
[2025-04-03 06:37] LABS: BASOPHILS ABSOLUTE AUTO 0.01 10^3/uL (0.00-0.10); BASOPHILS PERCENT AUTO 0.1 % (0.0-1.0); EOSINOPHILS ABSOLUTE AUTO 0.00 10^3/uL (0.10-0.30); EOSINOPHILS PERCENT AUTO 0.0 % (1.0-3.0); IMMATURE GRAN ABSOLUTE AUTO 0.01 10^3/uL (0.00-0.04); IMMATURE GRAN PERCENT AUTO 0.1 % (0.0-0.4); LYMPHOCYTES ABSOLUTE AUTO 1.00 10^3/uL (1.00-4.00); LYMPHOCYTES PERCENT AUTO 8.6 % (20.0-40.0); MEAN PLATELET VOLUME 10.4 fL (7.4-10.4); MONOCYTES ABSOLUTE AUTO 0.69 10^3/uL (0.10-0.80); MONOCYTES PERCENT AUTO 5.9 % (2.0-8.0); NEUTROPHILS ABSOLUTE AUTO 9.96 10^3/uL (2.50-7.00); NEUTROPHILS PERCENT AUTO 85.3 % (50.0-70.0); PLATELET COUNT,PLT 147 10^3/uL (150-400); RED BLOOD CELL COUNT 4.39 10^6/uL (3.80-5.50); RED CELL DISTRIBUTION WIDTH 14.9 % (11.5-14.5); WHITE BLOOD CELL COUNT,WBC 11.67 10^3/uL (5.00-10.00)
[2025-04-03 06:43] LABS: APPEARANCE,URINE CLEAR (CLEAR); GLUCOSE,URINE 500 mg/dL (NEGATIVE); OCCULT BLOOD,URINE NEGATIVE (NEGATIVE)
[2025-04-03 06:47] LABS: BLOOD UREA NITROGEN,BUN 39.0 mg/dL (7-18); CARBON DIOXIDE,CO2 33.1 mmol/L (21.0-32.0); CHLORIDE,CL 104.0 mmol/L (98-107); CREATININE 1.41 mg/dL (0.51-1.17); EST CRCL DRUG DOSING (CG) 17.71 mL/min; GLUCOSE RANDOM 90.0 mg/dL (70-140); SODIUM,NA 142.0 mmol/L (136-145)
[2025-04-03 06:47] LABS: EPITHELIAL CELLS,URINE RARE /LPF
[2025-04-03 06:48] LABS: ESTIMATED GFR 36.0 mL/min (>=60)
[2025-04-03 06:49] LABS: POTASSIUM,K 4.6 mmol/L (3.5-5.1)
[2025-04-03] MEDS: Magnesium Hydroxide 400 MG/5 ML Susp 30 ML Cup PO PRN (20:21)
[2025-04-04 07:30] LABS: BLOOD UREA NITROGEN,BUN 42.0 mg/dL (7-18); CARBON DIOXIDE,CO2 34.1 mmol/L (21.0-32.0); CHLORIDE,CL 106.0 mmol/L (98-107); CREATININE 1.26 mg/dL (0.51-1.17); EST CRCL DRUG DOSING (CG) 19.81 mL/min; GLUCOSE RANDOM 83.0 mg/dL (70-140); POTASSIUM,K 4.6 mmol/L (3.5-5.1); SODIUM,NA 142.0 mmol/L (136-145)
[2025-04-04 07:31] LABS: ESTIMATED GFR 41.0 mL/min (>=60)
[2025-04-07 07:11] LABS: BASOPHILS ABSOLUTE AUTO 0.02 10^3/uL (0.00-0.10); BASOPHILS PERCENT AUTO 0.3 % (0.0-1.0); EOSINOPHILS ABSOLUTE AUTO 0.38 10^3/uL (0.10-0.30); EOSINOPHILS PERCENT AUTO 5.3 % (1.0-3.0); IMMATURE GRAN ABSOLUTE AUTO 0.01 10^3/uL (0.00-0.04); IMMATURE GRAN PERCENT AUTO 0.1 % (0.0-0.4); LYMPHOCYTES ABSOLUTE AUTO 1.10 10^3/uL (1.00-4.00); LYMPHOCYTES PERCENT AUTO 15.5 % (20.0-40.0); MEAN PLATELET VOLUME 9.7 fL (7.4-10.4); MONOCYTES ABSOLUTE AUTO 0.78 10^3/uL (0.10-0.80); MONOCYTES PERCENT AUTO 11.0 % (2.0-8.0); NEUTROPHILS ABSOLUTE AUTO 4.82 10^3/uL (2.50-7.00); NEUTROPHILS PERCENT AUTO 67.8 % (50.0-70.0); PLATELET COUNT,PLT 131 10^3/uL (150-400); RED BLOOD CELL COUNT 4.12 10^6/uL (3.80-5.50); RED CELL DISTRIBUTION WIDTH 14.8 % (11.5-14.5); WHITE BLOOD CELL COUNT,WBC 7.11 10^3/uL (5.00-10.00)
[2025-04-07 12:41] VITALS: BP 151/63; PULSE 80
== END 2025-04-07 13:28 | disposition home or self-care (01) | DRG 690 ==
LOC: KA.ED 16:51 → KA.MS 18:33 → INTOOBSV 04-03 16:15 → OBSVTOIN 04-03 16:15
PROVIDERS: ADMIT Family Medicine; ATTEND Family Medicine
DX: N30.00 Acute cystitis without hematuria (principal); N17.9 Acute kidney failure, unspecified; J44.0 Chronic obstructive pulmonary disease with (acute) lower respiratory infection; J30.9 Allergic rhinitis, unspecified; H91.90 Unspecified hearing loss, unspecified ear; H54.7 Unspecified visual loss; I11.0 Hypertensive heart disease with heart failure; E78.00 Pure hypercholesterolemia, unspecified; I25.2 Old myocardial infarction; M54.9 Dorsalgia, unspecified; G89.29 Other chronic pain; E86.0 Dehydration; R41.0 Disorientation, unspecified; T50.905A Adverse effect of unspecified drugs, medicaments and biological substances, initial encounter; R79.89 Other specified abnormal findings of blood chemistry; I48.0 Paroxysmal atrial fibrillation; B96.20 Unspecified Escherichia coli [E. coli] as the cause of diseases classified elsewhere; Z88.8 Allergy status to other drugs, medicaments and biological substances; Z79.01 Long term (current) use of anticoagulants; Z79.82 Long term (current) use of aspirin; Z79.899 Other long term (current) drug therapy; Z85.038 Personal history of other malignant neoplasm of large intestine; Z87.891 Personal history of nicotine dependence; Z79.52 Long term (current) use of systemic steroids; Z98.890 Other specified postprocedural states; Z98.49 Cataract extraction status, unspecified eye; Z98.51 Tubal ligation status; Z86.73 Personal history of transient ischemic attack (TIA), and cerebral infarction without residual deficits; Z96.659 Presence of unspecified artificial knee joint
CPT/HCPCS: 36415; 70450; 71045; 72100; 72125; 72148; 80048; 80053; 81001; 82550; 83605; 84484; 85025; 93010; 96360; 97110-GO; 97110-GP; 97116-GP; 97129-GO; 97161-GP; 97165-GO; 97535-GO; 99284; 99285-25; A9270-GY; J0696; J7030; J7120; Q3014

== ENCOUNTER 2025-06-20 13:30 | Emergency (ER) | payer MEDICARE, OTHER ==
[2025-06-20] MEDS ORDERED: Sodium Chloride 0.9% 10 ML Syringe FLUSH PRN (13:41)
[2025-06-20 14:07] LABS: BASOPHILS ABSOLUTE AUTO 0.02 10^3/uL (0.00-0.10); BASOPHILS PERCENT AUTO 0.3 % (0.0-1.0); EOSINOPHILS ABSOLUTE AUTO 0.09 10^3/uL (0.10-0.30); EOSINOPHILS PERCENT AUTO 1.3 % (1.0-3.0); IMMATURE GRAN ABSOLUTE AUTO 0.00 10^3/uL (0.00-0.04); IMMATURE GRAN PERCENT AUTO 0.0 % (0.0-0.4); LYMPHOCYTES ABSOLUTE AUTO 1.15 10^3/uL (1.00-4.00); LYMPHOCYTES PERCENT AUTO 17.2 % (20.0-40.0); MEAN PLATELET VOLUME 9.3 fL (7.4-10.4); MONOCYTES ABSOLUTE AUTO 0.73 10^3/uL (0.10-0.80); MONOCYTES PERCENT AUTO 10.9 % (2.0-8.0); NEUTROPHILS ABSOLUTE AUTO 4.68 10^3/uL (2.50-7.00); NEUTROPHILS PERCENT AUTO 70.3 % (50.0-70.0); PLATELET COUNT,PLT 256 10^3/uL (150-400); RED BLOOD CELL COUNT 2.59 10^6/uL (3.80-5.50); RED CELL DISTRIBUTION WIDTH 13.9 % (11.5-14.5); WHITE BLOOD CELL COUNT,WBC 6.67 10^3/uL (5.00-10.00)
[2025-06-20 14:22] LABS: ALANINE AMINOTRANSFERASE,ALT 14.0 U/L (14-63); ASPARTATE AMNIOTRANSFERASE,AST 14.0 U/L (15-37); BILIRUBIN TOTAL 0.4 mg/dL (0.2-1.0); BLOOD UREA NITROGEN,BUN 45.0 mg/dL (7-18); CARBON DIOXIDE,CO2 36.2 mmol/L (21.0-32.0); CHLORIDE,CL 96.0 mmol/L (98-107); CREATININE 1.59 mg/dL (0.51-1.17); EST CRCL DRUG DOSING (CG) 15.17 mL/min; ESTIMATED GFR 31.0 mL/min (>=60); GLUCOSE RANDOM 116.0 mg/dL (70-140); POTASSIUM,K 3.5 mmol/L (3.5-5.1); PROTEIN TOTAL,TP 6.6 g/dL (6.4-8.2); SODIUM,NA 140.0 mmol/L (136-145)
[2025-06-20 14:23] LABS: B-TYPE NATRIURETIC PEPTIDE,BNP 1080.0 pg/mL (0-100)
[2025-06-20] MEDS: Furosemide 40 MG/4 ML VIAL IVPUSH ONE (15:02)
[2025-06-20 15:51] VITALS: BP 126/52; PULSE 65
[2025-06-20 16:11] LABS: APPEARANCE,URINE SLIGHTLY CLOUDY (CLEAR); GLUCOSE,URINE 100 mg/dL (NEGATIVE)
[2025-06-20 16:21] LABS: OCCULT BLOOD,URINE SMALL (NEGATIVE)
[2025-06-20 16:22] LABS: EPITHELIAL CELLS,URINE FEW /LPF
== END 2025-06-20 16:15 ==
LOC: KA.ED 13:30
DX: I11.0 Hypertensive heart disease with heart failure (principal); I50.9 Heart failure, unspecified; N17.9 Acute kidney failure, unspecified; D64.9 Anemia, unspecified; R53.1 Weakness; R79.89 Other specified abnormal findings of blood chemistry; E78.00 Pure hypercholesterolemia, unspecified; Z88.1 Allergy status to other antibiotic agents; Z88.8 Allergy status to other drugs, medicaments and biological substances; Z79.82 Long term (current) use of aspirin; Z79.899 Other long term (current) drug therapy
CPT/HCPCS: 36415; 71045; 80053; 81001; 83605; 83735; 83880; 84484; 85025; 93010; 96374; 99284; 99285-25; A9270-GY; J1938